=== PATIENT | male | born 1980 | race American Indian/Alaskan Native ===

== ENCOUNTER 2017-01-28 00:58 | Emergency (ER) | payer MEDICAID | END 2017-01-28 01:00 | disposition left against medical advice (07) | LOC: ED 00:58 | DX: F32.9 Major depressive disorder, single episode, unspecified (principal); H66.92 Otitis media, unspecified, left ear; Z53.21 Procedure and treatment not carried out due to patient leaving prior to being seen by health care provider ==

== ENCOUNTER 2017-03-15 21:54 | Emergency (ER) | payer MEDICAID ==
[2017-03-16 00:14] LABS: Anion Gap 16 mmol/L; Blood Urea Nitrogen 8 mg/dL (9-20); Calcium 9.2 mg/dL (8.4-10.2); Carbon Dioxide 25 mmol/L (22-30); Chloride 100.4 mmol/L (98-107); Glucose 93 mg/dL (75-100); Potassium 3.8 mmol/L (3.6-5.0); Sodium 138 mmol/L (137-145)
[2017-03-16 00:15] LABS: Urine Drugs of Abuse Note Disclamer
[2017-03-16 01:18] LABS: Bacteria,Urine 1+ /HPF (Negative); Bilirubin,Urine NEG (Negative); Blood,Urine NEG (Negative); Ketones,Urine 20 mg/dL (Negative); Leukocyte Esterase,Urine TR (Negative); Mucus,Urine FEW /HPF; Nitrite,Urine NEG (Negative); Urobilinogen,Urine < 2.0 mg/dL (<2.0)
[2017-03-16 01:37] LABS: Basophils % (Auto) 0.6 % (0.0-1.8); Eosinophils % (Auto) 0.2 % (0.0-4.3); Hematocrit 44.3 % (35.5-45.6); Hemoglobin 13.9 gm/dl (11.8-15.2); Mean Corpuscular HGB Conc 31 % (32-34); Mean Corpuscular Volume 76 fl (84-94); Platelet Count 307 K/mm3 (140-440); Red Blood Count 5.84 M/mm3 (3.65-5.03); Red Cell Distribution Width 14.1 % (13.2-15.2)
[2017-03-16 01:47] LABS: Mean Corpuscular Hemoglobin 24 pg (28-32)
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
[2017-03-16 07:59] VITALS: BP 110/78
== END 2017-03-16 18:40 ==
LOC: ED 21:54 → EEVIPCON 21:54 → ED 03-16 18:40
DX: R45.851 Suicidal ideations (principal); F20.0 Paranoid schizophrenia; F19.10 Other psychoactive substance abuse, uncomplicated; J45.909 Unspecified asthma, uncomplicated; R56.9 Unspecified convulsions; F17.200 Nicotine dependence, unspecified, uncomplicated
CPT/HCPCS: 36415; 80048; 80307; 81001; 85025; 99285; G0480; 80320

== ENCOUNTER 2017-04-01 04:48 | Emergency (ER) | payer MEDICAID ==
[2017-04-01 04:52] VITALS: BP 130/90
--- NOTE | 2017-04-01 06:04 | XRay Report ---
FINAL REPORT PROCEDURE: XR CHEST ROUTINE 2V TECHNIQUE: PA and lateral chest radiographs were obtained. CPT 39572 HISTORY: Shortness of breath COMPARISON: No prior studies are available for comparison. FINDINGS: Heart: Normal. Mediastinum/Vessels: Normal. Lungs/Pleural space: Normal. Bony thorax: No acute osseous abnormality. Other: IMPRESSION: Normal examination.
[2017-04-01 06:11] LABS: Eosinophils % (Auto) 0.3 % (0.0-4.3)
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
[2017-04-01 06:42] LABS: Anion Gap 19 mmol/L; Blood Urea Nitrogen 13 mg/dL (9-20); Calcium 9.4 mg/dL (8.4-10.2); Carbon Dioxide 24 mmol/L (22-30); Chloride 100.6 mmol/L (98-107); Glucose 99 mg/dL (75-100); Potassium 4.1 mmol/L (3.6-5.0); Sodium 139 mmol/L (137-145)
[2017-04-01 07:06] LABS: Hematocrit 41.6 % (35.5-45.6); Mean Corpuscular Volume 76 fl (84-94); Red Blood Count 5.49 M/mm3 (3.65-5.03); White Blood Count 13.9 K/mm3 (4.5-11.0)
[2017-04-01 07:07] LABS: Basophils % (Auto) 0.8 % (0.0-1.8); Mean Corpuscular HGB Conc 31 % (32-34); Mean Corpuscular Hemoglobin 24 pg (28-32); Platelet Count 375 K/mm3 (140-440)
== END 2017-04-01 06:37 | disposition home or self-care (01) ==
LOC: ED 04:48
DX: J06.9 Acute upper respiratory infection, unspecified (principal); F20.0 Paranoid schizophrenia; J45.909 Unspecified asthma, uncomplicated
CPT/HCPCS: 36415; 71020; 80048; 84484; 85025; 93005; 93010; 99284

== ENCOUNTER 2017-07-17 17:58 | Emergency (ER) | payer SELFPAY ==
[2017-07-17 18:59] LABS: BUN/Creatinine Ratio 9.41; Calcium 9.2 mg/dL (8.4-10.2); Chloride 96.1 mmol/L (98-107); Hematocrit 40.5 % (35.5-45.6); Hemoglobin 12.5 gm/dl (11.8-15.2); Mean Corpuscular HGB Conc 31 % (32-34); Mean Corpuscular Volume 75 fl (84-94); Red Blood Count 5.42 M/mm3 (3.65-5.03); Red Cell Distribution Width 13.6 % (13.2-15.2)
[2017-07-17 19:01] LABS: Mean Corpuscular Hemoglobin 23 pg (28-32); Platelet Count 189 K/mm3 (140-440); White Blood Count 21.5 K/mm3 (4.5-11.0)
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
[2017-07-17] MEDS ORDERED: HALDOL IM ONE (19:38)
[2017-07-17 19:55] LABS: Basophils % (Manual) 0 % (0.0-1.8); Blastocytes % (Manual) 0 %; Eosinophils % (Manual) 0 % (0.0-4.3)
[2017-07-17 19:59] LABS: Microcytosis 1+; Ovalocytes Few; Polychromasia 1+
[2017-07-17 20:00] LABS: Diff Status Complete; Platelet Clumps 1+
[2017-07-17 20:13] VITALS: BP 107/66
== END 2017-07-17 20:12 ==
LOC: ED 17:58
DX: Z76.0 Encounter for issue of repeat prescription (principal); F20.89 Other schizophrenia; J45.909 Unspecified asthma, uncomplicated; F17.200 Nicotine dependence, unspecified, uncomplicated
CPT/HCPCS: 36415; 80048; 85007; 85025; 96372; 99283; G0480; J1630; 80320

== ENCOUNTER 2019-08-24 13:39 | Emergency (ER) | payer SELFPAY ==
--- NOTE | 2019-08-24 14:01 | Event Note ---
ED Screening Note Date of service: 08/24/19 Time: 13:53 ED Screening Note: 38 y/o male comes in for Psych eval This initial assessment/diagnostic orders/clinical plan/treatment(s) is/are subject to change based on patients health status, clinical progression and re- assessment by fellow clinical providers in the ED. Further treatment and workup at subsequent clinical providers discretion. Patient/guardian urged not to elope from the ED as their condition may be serious if not clinically assessed and managed. Initial orders include:
[2019-08-24] MEDS ORDERED: GEODON IM ONE (14:40)
[2019-08-24] MEDS ORDERED: ATIVAN IV ONE (14:40)
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
[2019-08-24] MEDS ORDERED: WATER FOR INJ Sterile (PF) 10 ML ONE (14:59)
[2019-08-24 15:11] LABS: Alanine Aminotransferase 41 units/L (7-56); Albumin 3.9 g/dL (3.9-5); BUN/Creatinine Ratio 16; Blood Urea Nitrogen 14 mg/dL (9-20); Calcium 8.1 mg/dL (8.4-10.2); Hemolysis Index 10
[2019-08-24 16:20] LABS: Hematocrit 35.1 % (35.5-45.6); Hemoglobin 11.2 gm/dl (11.8-15.2); Mean Corpuscular HGB Conc 32 % (32-34); Mean Corpuscular Volume 76 fl (84-94); Platelet Count 296 K/mm3 (140-440); Red Blood Count 4.62 M/mm3 (3.65-5.03); Red Cell Distribution Width 14.3 % (13.2-15.2)
[2019-08-24 17:13] LABS: Anisocytosis 1+; Basophils % (Manual) 0 % (0.0-1.8); Eosinophils % (Manual) 0 % (0.0-4.3); Hypochromasia 1+; Platelet Estimate Consistent w Auto; Poikilocytosis 1+; Total Cells Counted 100
[2019-08-24 20:14] LABS: Bilirubin,Urine NEG (Negative); Blood,Urine NEG (Negative); Color,Urine Yellow (Yellow); Hyaline Casts,Urine 1 /LPF; Protein,Urine <15 mg/dL mg/dL (Negative); Urobilinogen,Urine < 2.0 mg/dL (<2.0); WBC,Urine < 1.0 /HPF (0.0-6.0)
[2019-08-24 20:25] LABS: Amphetamine Screen,Urine PRESUMPTIVE NEGATIVE; Benzodiazepines Screen,Urine PRESUMPTIVE NEGATIVE; Methadone Screen,Urine PRESUMPTIVE NEGATIVE; Opiate Screen,Urine PRESUMPTIVE NEGATIVE
[2019-08-24 21:45] LABS: Cannabinoid Screen,Urine PRESUMPTIVE POSITIVE; Cocaine Screen,Urine PRESUMPTIVE POSITIVE
[2019-08-25 08:55] VITALS: BP 121/72
--- NOTE | 2019-08-25 09:38 | Consultation ---
History of Present Illness - Reason for Consult Consult date: 08/25/19 Reason for consult: Mental Health Evaluation Requesting physician: EMIL HERRERA III - Chief Complaint Chief complaint: "I need to stop with my drug use" - History of Present Psychiatric Illness 38 y.o. AA male who presented to the ER for acute psychosis. Today the patient was calm and cooperative during the assessment. He stated that he was [facility]. He stated that he "binged" on drugs the past few days prior to coming to the ER. He stated, "I was with this female who can get drugs." He stated that he made a "bad choice." He is adamant about not wanting to use drugs again. He stated that he have used "drugs on and off" throughout his adult life. He stated that he has a hx of a mood/psychotic do. He stated that he can be "something else" when he's high on drugs. He denies SI/HI's and AVH's. He denies that someone or something is after him. He denies erratic sleep and a poor appetite. He denies alcohol consumption (etoh). Medications and Allergies Allergies Allergy/AdvReac Type Severity Reaction Status Date / Time No Known Allergies Allergy Verified 05/01/14 03:35 Home Medications Medication Instructions Recorded Confirmed Last Taken Type QUEtiapine [SEROquel] 400 mg PO QHS 05/29/16 03/16/17 05/22/16 History ALBUTEROL Inhaler (OR & NICU) 2 puff IH QID PRN #1 inhalation 06/12/16 03/16/17 Unknown Rx [ProAir HFA Inhaler] FLUoxetine HCL [PROzac] 40 mg PO QDAY 03/16/17 03/16/17 Unknown History Haloperidol Lactate [Haldol] 5 mg IM QMONTH 03/16/17 03/16/17 Unknown History Azithromycin [Zithromax] 250 mg PO DAILY #6 tablet 04/01/17 Unknown Rx guaiFENesin DM [Robitussin Dm] 5 ml PO QID #150 udc 04/01/17 Unknown Rx ARIPiprazole [Abilify] 15 mg PO DAILY #30 tab 07/17/17 Unknown Rx Past psychiatric history - Past Medical History Past Medical History: No medical history Past Surgical History: No surgical history - past Psychiatric treatment and history psychiatric treatment history: Hx of mood do and substance abuse. Denies a fam psy hx. - Social History Social history: lives with family Mental Status Exam - Vital signs Last Vital Signs Temp 98.2 F 08/25/19 07:50 Pulse 97 H 08/25/19 07:50 Resp 18 08/25/19 07:50 BP 121/72 08/25/19 07:50 Pulse Ox 96 08/25/19 07:50 - Exam Narrative exam: MSE: Appearance: calm, cooperative Behavior: regular eye contact Speech: regular rate and low tone Mood: "better" Affect: congruent to mood Thought Process: circumstantial Thought Content: denies SL/HI's and AVH's Motor Activity: lying in bed Cognition: A/O x 3 Insight: fair Judgment: fair Results Result Diagrams: 08/24/19 14:30 08/24/19 14:30 Abnormal lab results 08/24/19 08/24/19 08/24/19 Range/Units 14:30 14:30 14:30 WBC 16.0 H (4.5-11.0) K/mm3 Hgb 11.2 L (11.8-15.2) gm/dl Hct 35.1 L (35.5-45.6) % MCV 76 L (84-94) fl MCH 24 L (28-32) pg Seg Neuts % (Manual) 81.0 H (40.0-70.0) % Lymphocytes % (Manual) 10.0 L (13.4-35.0) % Monocytes % (Manual) 8.0 H (0.0-7.3) % Seg Neutrophils # Man 13.0 H (1.8-7.7) K/mm3 Monocytes # (Manual) 1.3 H (0.0-0.8) K/mm3 Carbon Dioxide 21 L (22-30) mmol/L Calcium 8.1 L (8.4-10.2) mg/dL AST 172 H (5-40) units/L Salicylates 1.6 L (2.8-20.0) mg/dL Acetaminophen (10.0-30.0) ug/mL 08/24/19 Range/Units 14:30 WBC (4.5-11.0) K/mm3 Hgb (11.8-15.2) gm/dl Hct (35.5-45.6) % MCV (84-94) fl MCH (28-32) pg Seg Neuts % (Manual) (40.0-70.0) % Lymphocytes % (Manual) (13.4-35.0) % Monocytes % (Manual) (0.0-7.3) % Seg Neutrophils # Man (1.8-7.7) K/mm3 Monocytes # (Manual) (0.0-0.8) K/mm3 Carbon Dioxide (22-30) mmol/L Calcium (8.4-10.2) mg/dL AST (5-40) units/L Salicylates (2.8-20.0) mg/dL Acetaminophen < 5.0 L (10.0-30.0) ug/mL All other labs normal. Assessment and Plan Assessment and plan: Impression: Substance Induced Psychosis. Substance Use Do (cocaien0. Cannabis Use Do. No overt psychosis with the patient. Today the patient was calm and cooperative during the assessment. Recommendations/Plan: Rescind 1013. Discussed the importance to abstain from recreational drug, he verbalized understanding. dispo: The patient can follow up with [facility] for outpatient psy/rehab services. Will staff with Dr Tisha Macedo.
== END 2019-08-25 11:06 | disposition home or self-care (01) ==
LOC: ED 13:39
DX: F14.10 Cocaine abuse, uncomplicated (principal); F12.10 Cannabis abuse, uncomplicated; R45.851 Suicidal ideations; F20.9 Schizophrenia, unspecified; J45.909 Unspecified asthma, uncomplicated; Z91.14 Patient's other noncompliance with medication regimen; Z76.0 Encounter for issue of repeat prescription; Z79.899 Other long term (current) drug therapy
CPT/HCPCS: 36415; 80053; 80307; 81001; 85007; 85025; 96372; 96374; 99284; J2060; J3486; 80320; G0480

== ENCOUNTER 2019-08-26 20:36 | Emergency (ER) | payer SELFPAY ==
--- NOTE | 2019-08-26 21:19 | Event Note ---
ED Screening Note Date of service: 08/26/19 Time: 21:13 ED Screening Note: This is a 38 y.o. M. that presents to the ER with headache, sore throat, and medication refills. Reports sore throat and headache for 2 days. Patient states symptoms started after having oral intercourse. This initial assessment/diagnostic orders/clinical plan/treatment(s) is/are subject to change based on patients health status, clinical progression and re- assessment by fellow clinical providers in the ED. Further treatment and workup at subsequent clinical providers discretion. Patient/guardian urged not to elope from the ED as their condition may be serious if not clinically assessed and managed. Initial orders include:
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
[2019-08-26 22:51] VITALS: BP 129/69
--- NOTE | 2019-08-26 23:06 | XRay Report ---
CHEST 2 VIEWS INDICATION / CLINICAL INFORMATION: chest pain. COMPARISON: 04/01/2017 FINDINGS: SUPPORT DEVICES: None. HEART / MEDIASTINUM: No significant abnormality. LUNGS / PLEURA: No significant pulmonary or pleural abnormality. No pneumothorax. ADDITIONAL FINDINGS: No significant additional findings. IMPRESSION: 1. No acute findings. Signer Name: Kaiden Ornelas MD Signed: 08/26/2019 11:02 PM Workstation Name: [id number]
== END 2019-08-26 23:30 | disposition home or self-care (01) ==
LOC: ED 20:36
DX: F20.9 Schizophrenia, unspecified (principal); J20.9 Acute bronchitis, unspecified; J45.909 Unspecified asthma, uncomplicated; F17.200 Nicotine dependence, unspecified, uncomplicated; Z76.0 Encounter for issue of repeat prescription; Z79.899 Other long term (current) drug therapy
CPT/HCPCS: 71046

== ENCOUNTER 2019-10-29 09:42 | Emergency (ER) | payer SELFPAY ==
[2019-10-29 09:53] VITALS: BP 134/91
== END 2019-10-29 12:54 | disposition left against medical advice (07) ==
LOC: ED 09:42
DX: T43.4X1A Poisoning by butyrophenone and thiothixene neuroleptics, accidental (unintentional), initial encounter (principal); Z53.21 Procedure and treatment not carried out due to patient leaving prior to being seen by health care provider; Y92.89 Other specified places as the place of occurrence of the external cause

== ENCOUNTER 2019-11-09 10:15 | Emergency (ER) | payer SELFPAY | END 2019-11-09 10:50 | disposition left against medical advice (07) | LOC: ED 10:15 | DX: F20.9 Schizophrenia, unspecified (principal); Z53.21 Procedure and treatment not carried out due to patient leaving prior to being seen by health care provider ==

== ENCOUNTER 2019-11-22 02:11 | Emergency (ER) | payer SELFPAY ==
[2019-11-22 03:13] LABS: Basophils # (Auto) 0.1 K/mm3 (0.0-0.1); Basophils % (Auto) 0.9 % (0.0-1.8); Eosinophils % (Auto) 0.2 % (0.0-4.3); Hematocrit 42.4 % (35.5-45.6); Hemoglobin 13.2 gm/dl (11.8-15.2); Lymphocytes % (Auto) 20.3 % (13.4-35.0); Mean Corpuscular HGB Conc 31 % (32-34); Mean Corpuscular Volume 76 fl (84-94); Monocytes # (Auto) 1.1 K/mm3 (0.0-0.8); Monocytes % (Auto) 7.2 % (0.0-7.3); Platelet Count 326 K/mm3 (140-440); Red Blood Count 5.56 M/mm3 (3.65-5.03); Red Cell Distribution Width 14.3 % (13.2-15.2)
[2019-11-22 03:39] LABS: BUN/Creatinine Ratio 12; Blood Urea Nitrogen 11 mg/dL (9-20); Calcium 9.2 mg/dL (8.4-10.2); Hemolysis Index 5
[2019-11-22 04:15] LABS: Bilirubin,Urine NEG (Negative); Blood,Urine NEG (Negative); Color,Urine Yellow (Yellow); Mucus,Urine FEW /HPF; Protein,Urine <15 mg/dL mg/dL (Negative); Urobilinogen,Urine < 2.0 mg/dL (<2.0)
[2019-11-22 04:23] LABS: Amphetamine Screen,Urine PRESUMPTIVE NEGATIVE; Benzodiazepines Screen,Urine PRESUMPTIVE NEGATIVE; Methadone Screen,Urine PRESUMPTIVE NEGATIVE; Opiate Screen,Urine PRESUMPTIVE NEGATIVE
[2019-11-22 04:58] LABS: Cannabinoid Screen,Urine PRESUMPTIVE POSITIVE; Cocaine Screen,Urine PRESUMPTIVE POSITIVE
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
[2019-11-22 17:18] LABS: Hematocrit 40.9 % (35.5-45.6); Hemoglobin 13.3 gm/dl (11.8-15.2); Mean Corpuscular HGB Conc 32 % (32-34); Mean Corpuscular Volume 76 fl (84-94); Platelet Count 344 K/mm3 (140-440); Red Cell Distribution Width 14.4 % (13.2-15.2)
--- NOTE | 2019-11-23 15:29 | Consultation ---
History of Present Illness - Reason for Consult Consult date: 11/23/19 Reason for consult: psychiatric assessment - Chief Complaint Chief complaint: Medical records reviewed and patient's progress was discussed with unit staff. Nursing staff reports that patient pt resting quietly on recliner, resp even and non labored, no acute distress noted, no behaviors or s/s of self harm noted, ambulates as needed to restroom without difficulty, able to make needs known. mr nicole is a 39 year old male, he is aaox3, he reports that he came to the hospital because of SI with overdose plan for 3 days, he stated he been off his medication for 4 days, because he didn't have any. he all so states " I am hearing voices telling me I am nobody, and i wont make it. the patient is still suicidal with a plan. . The patient is unstable at this time. PAST PSYCHIATRIC HISTORY: Diagnoses:schizophrenia, depression Suicide attempts or Self-harm behavior: no Prior psychiatric hospitalizations: yes Substance Abuse history: cocaine , marijuana Previous psychiatric medications tried: yes Outpatient treatment: yes PAST MEDICAL HISTORY: none Family Psychiatric History bipolar - dad bipolar- aunt SOCIAL HISTORY Marital Status: single Living Arrangements: family Employment Status: unemployed Access to guns/weapons:no Education: 10th History of Abuse:no Legal History: yes ROS: Constitutional: Negative for weight loss ENT: Negative for stridor Respiratory: Negative for cough or hemoptysis All other systems reviewed and are negative MENTAL STATUS General Appearance and Behavior: age appropriate, good eye contact, cooperative with questioning and polite Cooperation: Cooperative Psychomotor Behavior: within normal limits Mood: OK Affect and affective range: Congruent with stated mood Thought Process: Fluent/Logical and Goal-directed Thought Content: Within reality Speech: Normal volume and Regular rate and rhythm Intellectual Functioning Average Suicidal Ideation: yes Homicidal Ideation: Denies HI Impulse Control: intact Insight and Judgment: diminish Memory: Normal Attention: Normal Orientation: alert and oriented RECOMMENDATIONS MEDICATIONS: restart abilifty 5mg daily restart prozac 20mg daily restart geodon 40mg daily Risks, benefits and alternatives of medications discussed with the patient, questions answered and consent obtained from patient. PSYCHOTHERAPY: Supportive psychotherapy provided MEDICAL: Per primary team DELIRIUM PRECAUTIONS: Please re-orient patient frequently, keep lights on during the day, and minimize benzodiazepines and opiates as these medications could worsen patient's confusion. RN CARDIAC CATH: DISPOSITION: The patient is unable and need to be placed. LEGAL STATUS: FOLLOW-UP: Will follow Medications and Allergies Allergies Allergy/AdvReac Type Severity Reaction Status Date / Time No Known Allergies Allergy Verified 10/29/19 09:45 Home Medications Medication Instructions Recorded Confirmed Last Taken Type FLUoxetine HCL [PROzac] 20 mg PO QDAY 03/16/17 11/23/19 1 Week Ago History ~11/16/19 ARIPiprazole [Abilify TAB] 5 mg PO DAILY #30 tab 08/26/19 11/23/19 1 Week Ago Rx ~11/16/19 ARIPiprazole [Abilify] 5 mg PO DAILY 08/26/19 11/23/19 1 Week Ago History ~11/16/19 Ciprofloxacin HCl [Ciprofloxacin 500 mg PO Q12HR #14 tab 08/26/19 Unknown Rx TAB] FLUoxetine [PROzac] 20 mg PO QDAY #30 capsule 08/26/19 11/23/19 1 Week Ago Rx ~11/16/19 Ibuprofen [Motrin 800 MG tab] 800 mg PO Q8HR PRN #20 tablet 08/26/19 Unknown Rx Ziprasidone [Geodon] 40 mg PO DAILY #30 cap 08/26/19 11/23/19 1 Week Ago Rx ~11/16/19 traMADoL [Ultram] 50 mg PO Q6HR PRN #10 tablet 08/26/19 Unknown Rx Mental Status Exam - Vital signs Last Vital Signs Temp 98.4 F 11/23/19 13:00 Pulse 82 11/23/19 13:00 Resp 18 11/23/19 13:00 BP 123/82 11/23/19 13:00 Pulse Ox 99 11/23/19 13:00 Results Result Diagrams: 11/22/19 17:07 11/22/19 02:46 Abnormal lab results 11/22/19 Range/Units 17:07 RBC 5.40 H (3.65-5.03) M/mm3 MCV 76 L (84-94) fl MCH 25 L (28-32) pg All other labs normal.
[2019-11-23] MEDS ORDERED: traZODone 50 MG TAB PO ONE ×3 (19:52→23:09)
[2019-11-24] MEDS: FLUoxetine 20 MG CAP PO SCH (11:00)
[2019-11-24] MEDS: ZIPRASIDONE 40 MG CAP PO SCH (11:07)
[2019-11-24] MEDS: ARIPiprazole 5 MG TAB PO SCH (11:07)
--- NOTE | 2019-11-24 12:27 | Emergency Department Report ---
Blank Doc - Documentation Documentation: Patient comfortable. Reports he has not had a seizure in over a year. Reports not currently taking any seizure medications
--- NOTE | 2019-11-24 14:45 | Progress Note ---
Subjective - Reason for Consult Consult date: 11/24/19 Reason for consult: suicidal ideation - Chief Complaint Chief complaint: During my interview of the patient, he was lying down. Asleep. Easily arouses. Dressed appropriately. Fair eye contact. He's a/o x 3. The patient says he's been "suicidal since Wednesday." He says he's "depressed and going through it." The patient says if discharge he "will take the whole bottle of seroquel." He says "I get like this because of my schizophrenia." He says, meds "normally keep me stable but now I don't know." He denies hallucinations of any kind. The patient says he sleeps "okay" and his appetite is good. ROS: Constitutional: Negative for weight loss ENT: Negative for stridor Respiratory: Negative for cough or hemoptysis All other systems reviewed and are negative Mental Status Exam Appearance: Dressed appropriately, Good hygiene Behavior: Cooperative, and calm Mood: Depressed, Suicidal Affect: Congruent with stated mood Thought Process: goal-direct Speech: Normal Thought Content: Harmfulness yes, "I will take whole bottle of Seroquel" Hallucinations: denies Delusions: denies Consciousness: Alert Cognition/Memory: Fair Insight/Judgment: Limited. Assessment: Major Depressive Disorder, Severe, w/o Psychotic Features RECOMMENDATIONS MEDICATIONS: Continue current medication regimen Risks, benefits and alternatives of medications discussed with the patient, questions answered and consent obtained from patient. PSYCHOTHERAPY: Supportive psychotherapy provided MEDICAL: Per primary team DELIRIUM PRECAUTIONS: Please re-orient patient frequently, keep lights on during the day, and minimize benzodiazepines and opiates as these medications could worsen patient's confusion. COMMUNICATION COORDINATOR: Defer to primary team DISPOSITION: The patient meets criteria for acute inpatient treatment. Transfer to appropriate psych facility once medically stable. FOLLOW-UP: Will follow until the patient is transferred Mental Status Exam - Vital signs Last Vital Signs Temp 98.1 F 11/24/19 08:04 Pulse 68 11/24/19 08:04 Resp 18 11/24/19 08:04 BP 126/83 11/24/19 08:04 Pulse Ox 99 11/24/19 08:04
[2019-11-25] MEDS: ARIPiprazole 5 MG TAB PO SCH (10:18)
[2019-11-25] MEDS: ZIPRASIDONE 40 MG CAP PO SCH (10:18)
[2019-11-25] MEDS: FLUoxetine 20 MG CAP PO SCH (10:18)
--- NOTE | 2019-11-25 11:08 | Progress Note ---
Subjective - Reason for Consult Consult date: 11/25/19 Reason for consult: Suicidal ideation - Chief Complaint Chief complaint: During my interview of the patient, he was lying down. Asleep. Easily arouses. Dressed appropriately. Fair eye contact. He's a/o x 3. The patient is calm and cooperative. The patient says he's " still depressed." He says he feels "very suicidal" but says he "doesn't have a plan anymore." He says his night "went well." He denies hallucinations of any kind. He says his appetite has been Good" ROS: Constitutional: Negative for weight loss ENT: Negative for stridor Respiratory: Negative for cough or hemoptysis All other systems reviewed and are negative Mental Status Exam Appearance: Dressed appropriately, Good hygiene Behavior: Cooperative, and calm Mood: Depressed, Very suicidal Affect: Congruent with stated mood Thought Process: goal-direct Speech: Normal Thought Content: Harmfulness: Suicidal Hallucinations: denies Delusions: denies Consciousness: Alert Cognition/Memory: Fair Insight/Judgment: Limited. Assessment: Major Depressive Disorder, Severe, w/o Psychotic Features RECOMMENDATIONS Continue 1013 MEDICATIONS: Continue current medication regimen Risks, benefits and alternatives of medications discussed with the patient, questions answered and consent obtained from patient. PSYCHOTHERAPY: Supportive psychotherapy provided MEDICAL: Per primary team DELIRIUM PRECAUTIONS: Please re-orient patient frequently, keep lights on during the day, and minimize benzodiazepines and opiates as these medications could worsen patient's confusion. COTTON GINNER HELPER: Defer to primary team DISPOSITION: The patient meets criteria for acute inpatient treatment. Transfer to appropriate psych facility once medically stable. FOLLOW-UP: Will follow until the patient is transferred Mental Status Exam - Vital signs Last Vital Signs Temp 98.3 F 11/25/19 07:45 Pulse 82 11/25/19 07:45 Resp 18 11/25/19 07:45 BP 109/76 11/25/19 07:45 Pulse Ox 97 11/25/19 07:45
[2019-11-25 13:58] VITALS: BP 124/78
== END 2019-11-25 16:21 ==
LOC: ED 02:11 → EEVIPCON 02:11 → ED 11-25 16:21
DX: F32.9 Major depressive disorder, single episode, unspecified (principal); R45.851 Suicidal ideations; R44.0 Auditory hallucinations
CPT/HCPCS: 36415; 80048; 80307; 80320; 81001; 85025; 85027; G0480

== ENCOUNTER 2019-12-12 21:15 | Emergency (ER) | payer SELFPAY ==
[2019-12-13 00:46] LABS: Basophils # (Auto) 0.1 K/mm3 (0.0-0.1); Eosinophils % (Auto) 0.2 % (0.0-4.3); Hematocrit 40.5 % (35.5-45.6); Hemoglobin 12.8 gm/dl (11.8-15.2); Lymphocytes # (Auto) 2.5 K/mm3 (1.2-5.4); Lymphocytes % (Auto) 17.8 % (13.4-35.0); Mean Corpuscular HGB Conc 32 % (32-34); Mean Corpuscular Volume 77 fl (84-94); Monocytes # (Auto) 1.1 K/mm3 (0.0-0.8); Monocytes % (Auto) 7.7 % (0.0-7.3); Platelet Count 396 K/mm3 (140-440); Red Blood Count 5.27 M/mm3 (3.65-5.03); Red Cell Distribution Width 14.6 % (13.2-15.2)
[2019-12-13 01:04] LABS: BUN/Creatinine Ratio 14; Blood Urea Nitrogen 11 mg/dL (9-20); Calcium 9.6 mg/dL (8.4-10.2); Hemolysis Index 6
[2019-12-13] MEDS ORDERED: HALOPERIDOL LACTATE 5 MG/1 ML INJ IM PRN (03:25)
[2019-12-13] MEDS ORDERED: LORazepam 2 MG/ML VIAL IM PRN (03:25)
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
[2019-12-13] MEDS ORDERED: SODIUM CHLORIDE 0.9% 1000 ML 2,000 ML IV ONE (04:51)
[2019-12-13] MEDS ORDERED: SODIUM CHLORIDE 0.9% 1000 ML 1,000 ML IV ONE ×2 (04:51)
[2019-12-13 06:37] LABS: Bilirubin,Urine NEG (Negative); Blood,Urine NEG (Negative); Color,Urine Yellow (Yellow); Mucus,Urine FEW /HPF; Protein,Urine <15 mg/dL mg/dL (Negative); Urobilinogen,Urine < 2.0 mg/dL (<2.0)
[2019-12-13 06:45] LABS: Benzodiazepines Screen,Urine PRESUMPTIVE NEGATIVE; Methadone Screen,Urine PRESUMPTIVE NEGATIVE; Opiate Screen,Urine PRESUMPTIVE NEGATIVE
[2019-12-13 07:06] LABS: Amphetamine Screen,Urine PRESUMPTIVE POSITIVE; Cannabinoid Screen,Urine PRESUMPTIVE POSITIVE; Cocaine Screen,Urine PRESUMPTIVE POSITIVE
[2019-12-14 04:40] LABS: Hematocrit 37.1 % (35.5-45.6); Hemoglobin 11.8 gm/dl (11.8-15.2); Mean Corpuscular HGB Conc 32 % (32-34); Mean Corpuscular Volume 77 fl (84-94); Platelet Count 352 K/mm3 (140-440); Red Blood Count 4.84 M/mm3 (3.65-5.03); Red Cell Distribution Width 14.7 % (13.2-15.2)
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
[2019-12-14 16:57] VITALS: BP 176/88
== END 2019-12-14 13:40 | disposition home or self-care (01) ==
LOC: ED 21:15
DX: F20.0 Paranoid schizophrenia (principal); R74.8 Abnormal levels of other serum enzymes; F17.200 Nicotine dependence, unspecified, uncomplicated; Z79.899 Other long term (current) drug therapy
CPT/HCPCS: 36415; 80048; 80307; 81001; 82550; 83735; 85025; 85027; 96372; 99284; J2060; J7030; 80320; G0480

== ENCOUNTER 2020-01-26 17:55 | Emergency (ER) | payer SELFPAY ==
[2020-01-26 18:40] LABS: Basophils # (Auto) 0.1 K/mm3 (0.0-0.1); Basophils % (Auto) 0.8 % (0.0-1.8); Eosinophils % (Auto) 0.5 % (0.0-4.3); Hematocrit 39.1 % (35.5-45.6); Hemoglobin 12.2 gm/dl (11.8-15.2); Lymphocytes # (Auto) 2.5 K/mm3 (1.2-5.4); Lymphocytes % (Auto) 24.8 % (13.4-35.0); Mean Corpuscular HGB Conc 31 % (32-34); Mean Corpuscular Volume 77 fl (84-94); Monocytes # (Auto) 0.7 K/mm3 (0.0-0.8); Monocytes % (Auto) 6.7 % (0.0-7.3); Platelet Count 352 K/mm3 (140-440); Red Blood Count 5.08 M/mm3 (3.65-5.03); Red Cell Distribution Width 14.2 % (13.2-15.2)
[2020-01-26 19:00] LABS: BUN/Creatinine Ratio 12; Blood Urea Nitrogen 11 mg/dL (9-20); Calcium 9.2 mg/dL (8.4-10.2); Hemolysis Index 6
--- NOTE | 2020-01-26 20:20 | Event Note ---
ED Screening Note ED Screening Note: The patient was seen in triage for racing thoughts and anxiety. Requesting to get his monthly haldol shot here. Seen here 1 month ago for suicidal ideation. Labs/imaging ordered to evaluate for a cause of this complaint. Vital signs reviewed, patient awake and alert in NAD. This initial assessment/diagnostic orders/clinical plan/treatment(s) is/are subject to change based on patients health status, clinical progression and re- assessment by fellow clinical providers in the ED. Further treatment and workup at subsequent clinical providers discretion. Patient/guardian urged not to elope from the ED as their condition may be serious if not clinically assessed and managed. Initial orders include: MD to evaluate for HALDOL. No bryan or psychosis at current.
[2020-01-26 20:22] VITALS: BP 116/64
--- NOTE | 2020-01-26 23:42 | Emergency Department Report ---
Blank Doc - Documentation Documentation: Patient eloped before I was able to enter the room thus a physical exam or his tory cannot be done.
== END 2020-01-26 23:39 | disposition left against medical advice (07) ==
LOC: ED 17:55
DX: F41.9 Anxiety disorder, unspecified (principal)
CPT/HCPCS: 36415; 80048; 85025

== ENCOUNTER 2020-03-13 20:36 | Emergency (ER) | payer SELFPAY ==
[2020-03-13 20:59] VITALS: BP 114/83
== END 2020-03-13 21:30 | disposition left against medical advice (07) ==
LOC: ED 20:36 → EEVIPCON 20:36 → ED 21:30
DX: R45.851 Suicidal ideations (principal); Z53.21 Procedure and treatment not carried out due to patient leaving prior to being seen by health care provider

== ENCOUNTER 2020-04-14 09:35 | Emergency (ER) | payer SELFPAY ==
[2020-04-14 10:19] LABS: Basophils # (Auto) 0.1 K/mm3 (0.0-0.1); Basophils % (Auto) 0.8 % (0.0-1.8); Eosinophils # (Auto) 0.1 K/mm3 (0.0-0.4); Eosinophils % (Auto) 0.6 % (0.0-4.3); Hematocrit 43.7 % (35.5-45.6); Hemoglobin 13.6 gm/dl (11.8-15.2); Lymphocytes # (Auto) 2.4 K/mm3 (1.2-5.4); Lymphocytes % (Auto) 23.6 % (13.4-35.0); Mean Corpuscular HGB Conc 31 % (32-34); Mean Corpuscular Volume 75 fl (84-94); Monocytes # (Auto) 0.7 K/mm3 (0.0-0.8); Monocytes % (Auto) 6.9 % (0.0-7.3); Platelet Count 367 K/mm3 (140-440); Red Cell Distribution Width 13.7 % (13.2-15.2)
[2020-04-14 10:32] LABS: BUN/Creatinine Ratio 13; Blood Urea Nitrogen 13 mg/dL (9-20); Calcium 8.8 mg/dL (8.4-10.2); Hemolysis Index 9
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
[2020-04-14 11:03] LABS: Bilirubin,Urine NEG (Negative); Blood,Urine NEG (Negative); Color,Urine Colorless (Yellow); Protein,Urine <15 mg/dL mg/dL (Negative); Urobilinogen,Urine < 2.0 mg/dL (<2.0); WBC,Urine < 1.0 /HPF (0.0-6.0)
[2020-04-14 11:08] LABS: Amphetamine Screen,Urine PRESUMPTIVE NEGATIVE; Benzodiazepines Screen,Urine PRESUMPTIVE NEGATIVE; Cannabinoid Screen,Urine PRESUMPTIVE NEGATIVE; Cocaine Screen,Urine PRESUMPTIVE NEGATIVE; Methadone Screen,Urine PRESUMPTIVE NEGATIVE; Opiate Screen,Urine PRESUMPTIVE NEGATIVE
[2020-04-14 11:20] LABS: RBC,Urine < 1.0 /HPF (0.0-6.0)
[2020-04-14] MEDS ORDERED: HALOPERIDOL 5 MG TAB PO ONE (12:15)
[2020-04-14] MEDS: diphenhydrAMINE 25 MG CAP PO SCH ×2 (12:54→23:08)
[2020-04-14] MEDS ORDERED: ALUM-MAG HYDROXIDE-SIMETHICONE 200-200-20MG/5ML ORAL LIQD 30 ML PO PRN (13:55)
[2020-04-14] MEDS ORDERED: MAGNESIUM HYDROXIDE (MOM) ORAL LIQD UDC PO PRN (13:55)
[2020-04-14] MEDS ORDERED: ACETAMINOPHEN 325 MG TAB PO PRN (13:55)
[2020-04-14] MEDS ORDERED: ZIPRASIDONE MESYLATE 20 MG VIAL IM ONE ×2 (14:10→14:16)
[2020-04-14] MEDS ORDERED: LORazepam 2 MG/ML VIAL ONE (14:12)
[2020-04-14] MEDS ORDERED: LORazepam 2 MG/ML VIAL IM ONE (14:16)
[2020-04-14] MEDS ORDERED: traZODone 100 MG TAB PO SCH (22:00)
[2020-04-15] MEDS ORDERED: guaiFENesin DM 200/20 MG ORAL LIQD 10 ML PO ONE (03:31)
[2020-04-15] MEDS ORDERED: guaiFENesin DM 200/20 MG ORAL LIQD 10 ML ONE (03:32)
[2020-04-15 07:46] VITALS: BP 112/70
[2020-04-15] MEDS: risperiDONE 0.25 MG TAB PO SCH ×2 (08:02→10:13)
[2020-04-15] MEDS ORDERED: FLUoxetine 20 MG CAP PO SCH (10:00)
[2020-04-15] MEDS: diphenhydrAMINE 25 MG CAP PO SCH (10:13)
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
== END 2020-04-15 12:10 | disposition home or self-care (01) ==
LOC: ED 09:35
DX: F20.89 Other schizophrenia (principal); J45.909 Unspecified asthma, uncomplicated; F17.200 Nicotine dependence, unspecified, uncomplicated; F12.10 Cannabis abuse, uncomplicated
CPT/HCPCS: 36415; 80048; 80307; 81001; 85025; 93005; 96372; 99284; J2060; J3486; 80320; G0480

== ENCOUNTER 2020-05-13 07:47 | Emergency (ER) | payer SELFPAY ==
[2020-05-13 08:30] LABS: Bilirubin,Urine NEG (Negative); Blood,Urine NEG (Negative); Color,Urine Yellow (Yellow); Mucus,Urine FEW /HPF; Protein,Urine <15 mg/dL mg/dL (Negative); Urobilinogen,Urine < 2.0 mg/dL (<2.0)
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
[2020-05-13 09:04] LABS: Basophils # (Auto) 0.1 K/mm3 (0.0-0.1); Basophils % (Auto) 1.3 % (0.0-1.8); Eosinophils % (Auto) 0.3 % (0.0-4.3); Hematocrit 43.5 % (35.5-45.6); Hemoglobin 13.5 gm/dl (11.8-15.2); Lymphocytes # (Auto) 2.3 K/mm3 (1.2-5.4); Lymphocytes % (Auto) 23.3 % (13.4-35.0); Mean Corpuscular HGB Conc 31 % (32-34); Mean Corpuscular Volume 78 fl (84-94); Monocytes # (Auto) 0.9 K/mm3 (0.0-0.8); Monocytes % (Auto) 9.5 % (0.0-7.3); Platelet Count 316 K/mm3 (140-440); Red Blood Count 5.59 M/mm3 (3.65-5.03); Red Cell Distribution Width 14.7 % (13.2-15.2)
[2020-05-13 09:18] LABS: Amphetamine Screen,Urine PRESUMPTIVE NEGATIVE; Cocaine Screen,Urine PRESUMPTIVE POSITIVE
[2020-05-13 09:19] LABS: Benzodiazepines Screen,Urine PRESUMPTIVE NEGATIVE; Cannabinoid Screen,Urine PRESUMPTIVE POSITIVE; Methadone Screen,Urine PRESUMPTIVE NEGATIVE; Opiate Screen,Urine PRESUMPTIVE NEGATIVE
[2020-05-13 09:46] LABS: BUN/Creatinine Ratio 18; Blood Urea Nitrogen 14 mg/dL (9-20)
[2020-05-13 09:47] LABS: Calcium 9.9 mg/dL (8.4-10.2); Hemolysis Index 9
[2020-05-14 08:29] VITALS: BP 132/90
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
[2020-05-14] MEDS ORDERED: PROMETHAZINE 25 MG TAB PO STA (11:09)
[2020-05-14] MEDS ORDERED: HALOPERIDOL DECANOATE 100 MG/1 ML INJ IM ONE (12:00)
== END 2020-05-14 11:18 ==
LOC: EEVIPCON 07:47 → ED 07:47
DX: F20.89 Other schizophrenia (principal); F15.10 Other stimulant abuse, uncomplicated
CPT/HCPCS: 36415; 80048; 80307; 80320; 81001; 85025; 93005; G0480; J1631

== ENCOUNTER 2020-09-28 02:03 | Emergency (ER) | payer MEDICAID ==
--- NOTE | 2020-09-28 04:09 | XRay Report ---
CHEST 2 VIEWS INDICATION / CLINICAL INFORMATION: cough. COMPARISON: 05/07/2020 FINDINGS: SUPPORT DEVICES: None. HEART / MEDIASTINUM: No significant abnormality. LUNGS / PLEURA: No significant pulmonary or pleural abnormality. No pneumothorax. ADDITIONAL FINDINGS: No significant additional findings. IMPRESSION: 1. No acute findings. Signer Name: Paco Tidwell MD Signed: 09/28/2020 4:04 AM Workstation Name: [id number]
[2020-09-28] MEDS ORDERED: IPRATROPIUM/ALBUTEROL SULFATE 3 ML AMPUL.NEB IH ONE (07:41)
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
[2020-09-28 10:17] VITALS: BP 130/80
== END 2020-09-28 10:00 | disposition home or self-care (01) ==
LOC: ED 02:03
DX: J06.9 Acute upper respiratory infection, unspecified (principal); R56.9 Unspecified convulsions; F20.0 Paranoid schizophrenia; F17.200 Nicotine dependence, unspecified, uncomplicated; Z98.890 Other specified postprocedural states; Z79.899 Other long term (current) drug therapy
CPT/HCPCS: 71046; 94640; 94644

== ENCOUNTER 2020-09-30 09:09 | Emergency (ER) | payer MEDICAID ==
[2020-09-30 11:16] LABS: Basophils # (Auto) 0.2 K/mm3 (0.0-0.1); Basophils % (Auto) 1.1 % (0.0-1.8); Eosinophils % (Auto) 0.1 % (0.0-4.3); Hematocrit 41.4 % (35.5-45.6); Hemoglobin 13.1 gm/dl (11.8-15.2); Lymphocytes # (Auto) 2.1 K/mm3 (1.2-5.4); Lymphocytes % (Auto) 13.2 % (13.4-35.0); Mean Corpuscular HGB Conc 32 % (32-34); Mean Corpuscular Volume 75 fl (84-94); Monocytes # (Auto) 0.9 K/mm3 (0.0-0.8); Monocytes % (Auto) 5.5 % (0.0-7.3); Platelet Count 325 K/mm3 (140-440); Red Blood Count 5.51 M/mm3 (3.65-5.03); Red Cell Distribution Width 14.4 % (13.2-15.2)
[2020-09-30 11:40] LABS: BUN/Creatinine Ratio 16; Blood Urea Nitrogen 11 mg/dL (9-20); Calcium 9.6 mg/dL (8.4-10.2); Hemolysis Index 14
[2020-09-30 15:18] LABS: Bilirubin,Urine NEG (Negative); Blood,Urine NEG (Negative); Color,Urine Yellow (Yellow); Mucus,Urine FEW /HPF; Protein,Urine <15 mg/dL mg/dL (Negative)
[2020-09-30 15:25] LABS: Amphetamine Screen,Urine Negative; Benzodiazepines Screen,Urine Negative; Methadone Screen,Urine Negative; Opiate Screen,Urine Negative
[2020-09-30 15:42] LABS: Cannabinoid Screen,Urine Positive; Cocaine Screen,Urine Positive
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
[2020-09-30] MEDS ORDERED: predniSONE 20 MG TAB PO ONE (16:43)
[2020-09-30] MEDS ORDERED: CETIRIZINE 10 MG TAB PO ONE (16:43)
[2020-09-30] MEDS ORDERED: predniSONE 20 MG TAB ONE (19:23)
--- NOTE | 2020-10-01 09:48 | Consultation ---
History of Present Illness - Reason for Consult Consult date: 10/01/20 Reason for consult: MHE Requesting physician: AMIE GARCIAS - History of Present Psychiatric Illness Per ED Provider This is a 39 yo male with hx of schizophrenia, cocaine dependence, asthma, seizures who presents with depression, anxiety and plan to hang himself. He has a lot of family problems. He has been stressed. He relapsed. He recently used cocaine. He denies auditory hallucinations. He denies homicidal ideation. PSYCH HPI Patient is a 39-year-old unemployed, currently lives with mom and single -[place]ian male with past psychiatric history of schizophrenia who presented to the ED with chief complaints of depression and worsening anxiety with plan trying himself. Patient stated he is just feeling very bad this days, got very depressed anything his current medications are not helping and he does not believe he is on an antidepressant at the moment. Patient reported feeling suicidal, poor sleep pattern no nightmares though, and he endorses good appetite and also denies auditory visual hallucinations. Patient endorses recent drug use. PAST PSYCHIATRIC HISTORY Diagnoses: Schizophrenia Suicide attempts or Self-harm behavior: None reported Prior psychiatric hospitalizations: Yes Substance Abuse history: Crack cocaine and marijuana Previous psychiatric medications tried: Haldol Outpatient treatment: Yes PAST MEDICAL HISTORY: Anemia Family Psychiatric History: None reported or documented SOCIAL HISTORY Marital Status: Single Living Arrangements: With mom Employment Status: Unemployed Access to guns/weapons: None reported Education: Eighth grade dropout History of Abuse: None reported Legal History: Yes imprisonment REVIEW OF SYSTEMS Constitutional: Negative for weight loss ENT: Negative for stridor Respiratory: Negative for cough or hemoptysis All other systems reviewed and are negative MENTAL STATUS EXAMINATION General Appearance and Behavior: Age appropriate, good hygiene, wearing appropriate clothes, good eye contact, cooperativewith questioning and polite Cooperation: Participating/engaged Psychomotor Behavior: unremarkable and within normal limits Mood: Depressed Affect and affective range: congruent with mood Thought Process: Fluent/Logical Thought Content: Within reality Speech: Normal volume, Regular rate and rhythm. Intellectual Functioning: Average Suicidal Ideation: Suicidal Homicidal Ideation: Denies HI Impulse Control: impaired Insight and Judgment: limited insight and judgment Memory: Normal Attention: Normal Orientation: Alert, oriented. Assessment and Plan - Psychiatric problem (1) Polysubstance abuse Current Visit: No Status: Acute (2) Schizophrenia Current Visit: No Status: Acute Qualifiers: Schizophrenia type: unspecified Qualified Code(s): F20.9 - Schizophrenia, unspecified RECOMMENDATIONS Patient has history of polysubstance abuse, again patient was positive for cocaine and marijuana for this visit. Patient home medications restarted. Patient has history of noncompliance but will continue to monitor MEDICATIONS: Risks, benefits and alternatives of medications discussed with the patient, questions answered and consent obtained from patient. PSYCHOTHERAPY: Supportive psychotherapy provided MEDICAL: Per primary team DELIRIUM PRECAUTIONS: Please re-orient patient frequently, keep lights on during the day, and minimize benzodiazepines and opiates as these medications could worsen patient's confusion. [employer]: non indicated DISPOSITION: Recommend acute inpatient psychiatric hospitalization at this time LEGAL STATUS: 1013 FOLLOW-UP: Will follow Thank you for the consult. Please contact with any questions and/or concerns. Medications and Allergies Allergies Allergy/AdvReac Type Severity Reaction Status Date / Time No Known Allergies Allergy Verified 03/13/20 20:58 Home Medications Medication Instructions Recorded Confirmed Last Taken Type Doxepin [SINEquan] 10 mg PO QHS #30 capsule 12/14/19 05/13/20 Unknown Rx FLUoxetine HCL [Prozac] 40 mg PO DAILY #30 capsule 12/14/19 05/13/20 Unknown Rx risperiDONE [RisperDAL] 0.25 mg PO BID #60 tab 12/14/19 05/13/20 Unknown Rx haloperidoL [Haldol] 2 mg PO BID #60 tablet 04/15/20 05/13/20 Unknown Rx traZODone [Desyrel] 100 mg PO QHS #30 04/15/20 05/13/20 Unknown Rx Mental Status Exam - Vital signs Last Vital Signs Temp 98.3 F 10/01/20 07:53 Pulse 84 10/01/20 07:53 Resp 16 10/01/20 07:53 BP 117/76 10/01/20 07:53 Pulse Ox 98 10/01/20 07:53 Results Result Diagrams: 09/30/20 10:45 09/30/20 10:45 Abnormal lab results 09/30/20 09/30/20 09/30/20 Range/Units 10:45 10:45 10:45 WBC (4.5-11.0) K/mm3 RBC (3.65-5.03) M/mm3 MCV (84-94) fl MCH (28-32) pg Lymph % (Auto) (13.4-35.0) % [place] # (Auto) (0.0-0.8) K/mm3 Baso # (Auto) (0.0-0.1) K/mm3 Seg Neutrophils % (40.0-70.0) % Seg Neutrophils # (1.8-7.7) K/mm3 Sodium 135 L (137-145) mmol/L Creatinine 0.7 L (0.8-1.3) mg/dL Salicylates < 0.3 L (2.8-20.0) mg/dL Acetaminophen 5.0 L (10.0-30.0) ug/mL 09/30/20 Range/Units 10:45 WBC 16.2 H (4.5-11.0) K/mm3 RBC 5.51 H (3.65-5.03) M/mm3 MCV 75 L (84-94) fl MCH 24 L (28-32) pg Lymph % (Auto) 13.2 L (13.4-35.0) % [place] # (Auto) 0.9 H (0.0-0.8) K/mm3 Baso # (Auto) 0.2 H (0.0-0.1) K/mm3 Seg Neutrophils % 80.1 H (40.0-70.0) % Seg Neutrophils # 13.0 H (1.8-7.7) K/mm3 Sodium (137-145) mmol/L Creatinine (0.8-1.3) mg/dL Salicylates (2.8-20.0) mg/dL Acetaminophen (10.0-30.0) ug/mL All other labs normal.
[2020-10-01] MEDS ORDERED: FLUoxetine 20 MG CAP PO SCH (12:00)
[2020-10-01] MEDS ORDERED: risperiDONE 0.25 MG TAB PO SCH (12:00)
[2020-10-01] MEDS ORDERED: risperiDONE 1 MG TAB PO SCH (12:00)
[2020-10-01 15:18] VITALS: BP 126/75
[2020-10-01] MEDS ORDERED: traZODone 100 MG TAB PO SCH (22:00)
== END 2020-10-01 18:56 | disposition admitted as inpatient to this hospital (09) ==
LOC: ED 09:09
DX: R45.851 Suicidal ideations (principal); F20.9 Schizophrenia, unspecified; F14.20 Cocaine dependence, uncomplicated; R56.9 Unspecified convulsions; J45.909 Unspecified asthma, uncomplicated; F12.10 Cannabis abuse, uncomplicated; Z98.890 Other specified postprocedural states; Z79.899 Other long term (current) drug therapy
CPT/HCPCS: 36415; 80048; 80307; 81001; 85025; 99285; J7512; 80320; G0480

== ENCOUNTER 2020-11-14 23:15 | Emergency (ER) | payer MEDICAID ==
[2020-11-14 23:22] VITALS: BP 148/87
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
== END 2020-11-15 04:13 | disposition home or self-care (01) ==
LOC: ED 23:15
DX: J20.9 Acute bronchitis, unspecified (principal); J01.10 Acute frontal sinusitis, unspecified; R56.9 Unspecified convulsions; J45.909 Unspecified asthma, uncomplicated; F12.10 Cannabis abuse, uncomplicated; F14.10 Cocaine abuse, uncomplicated; Z98.890 Other specified postprocedural states; Z79.2 Long term (current) use of antibiotics; Z79.899 Other long term (current) drug therapy
CPT/HCPCS: 99282

== ENCOUNTER 2020-11-30 01:55 | Emergency (ER) | payer MEDICAID ==
[2020-11-30 03:16] LABS: Basophils # (Auto) 0.1 K/mm3 (0.0-0.1); Basophils % (Auto) 0.5 % (0.0-1.8); Hematocrit 43.3 % (35.5-45.6); Hemoglobin 13.5 gm/dl (11.8-15.2); Lymphocytes # (Auto) 2.8 K/mm3 (1.2-5.4); Lymphocytes % (Auto) 15.3 % (13.4-35.0); Mean Corpuscular HGB Conc 31 % (32-34); Mean Corpuscular Volume 77 fl (84-94); Monocytes # (Auto) 1.2 K/mm3 (0.0-0.8); Monocytes % (Auto) 6.8 % (0.0-7.3); Platelet Count 319 K/mm3 (140-440); Red Blood Count 5.65 M/mm3 (3.65-5.03); Red Cell Distribution Width 14.1 % (13.2-15.2)
[2020-11-30 03:28] LABS: BUN/Creatinine Ratio 10; Blood Urea Nitrogen 10 mg/dL (9-20); Calcium 9.6 mg/dL (8.4-10.2); Hemolysis Index 5
[2020-11-30 04:20] LABS: Bilirubin,Urine NEG (Negative); Blood,Urine NEG (Negative); Color,Urine Yellow (Yellow); Mucus,Urine FEW /HPF; Protein,Urine <15 mg/dL mg/dL (Negative); RBC,Urine < 1.0 /HPF (0.0-6.0); Urobilinogen,Urine < 2.0 mg/dL (<2.0); WBC,Urine < 1.0 /HPF (0.0-6.0)
[2020-11-30 04:27] LABS: Amphetamine Screen,Urine PRESUMPTIVE NEGATIVE; Benzodiazepines Screen,Urine PRESUMPTIVE NEGATIVE; Cannabinoid Screen,Urine PRESUMPTIVE POSITIVE; Cocaine Screen,Urine PRESUMPTIVE POSITIVE; Methadone Screen,Urine PRESUMPTIVE NEGATIVE; Opiate Screen,Urine PRESUMPTIVE NEGATIVE
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
--- NOTE | 2020-11-30 10:44 | Consultation ---
History of Present Illness - Reason for Consult Consult date: 11/30/20 Reason for consult: hearing voices, suicidal - History of Present Psychiatric Illness ED note states "This is a 40-year-old -[place] male presents to the emergency department with a complaint of auditory hallucinations and suicidal ideations. Patient has a history of paranoid schizophrenia. He says he has been compliant with his psychiatric medications, Zoloft and Seroquel, but it has not helped. He is hearing voices that are telling him to hang himself. Patient admits to "self-medicating" with some recent cocaine and marijuana but does not appear acutely intoxicated. He also has a past medical history of asthma and seizures. He denies any homicidal ideations." During my interview with the patient, he is lying in bed awake. a/ox 3. He is calm and cooperative, He states the he was at [facility] a couple of months ago and he doesn't think his medications are not right, and not working like they initially were. When asking the patient why didn't he follow up with outpatient, he says "things just got bad like this." He says he takes seroquel and zoloft. The patient says he's been up all night, hearing voices telling him to hang himself, having racing thoughts and feeling suicidal. The patient says it has gotten worse over the last three days. The patient reports a use of cocaine, and THC. PAST PSYCHIATRIC HISTORY Diagnoses: Schizophrenia Suicide attempts or Self-harm behavior: None reported Prior psychiatric hospitalizations: Yes Substance Abuse history: Crack cocaine and marijuana Previous psychiatric medications tried: Haldol, seroquel, zoloft, risperidone Outpatient treatment: Yes PAST MEDICAL HISTORY: Anemia Family Psychiatric History: None reported or documented SOCIAL HISTORY Marital Status: Single Living Arrangements: With mom Employment Status: Unemployed Access to guns/weapons: None reported Education: Eighth grade dropout History of Abuse: None reported Legal History: Yes imprisonment REVIEW OF SYSTEMS Constitutional: Negative for weight loss ENT: Negative for stridor Respiratory: Negative for cough or hemoptysis All other systems reviewed and are negative MENTAL STATUS EXAMINATION General Appearance and Behavior: Age appropriate, good hygiene, wearing appr opriate clothes, good eye contact, cooperativewith questioning and polite Cooperation: Participating/engaged Psychomotor Behavior: unremarkable and within normal limits Mood: Depressed Affect and affective range: congruent with mood Thought Process: Fluent/Logical Thought Content: Within reality Speech: Normal volume, Regular rate and rhythm. Intellectual Functioning: Average Suicidal Ideation: Suicidal Homicidal Ideation: Denies HI Impulse Control: impaired Insight and Judgment: limited insight and judgment Memory: Normal Attention: Normal Orientation: Alert, oriented. Assessment and Plan (1) Cocaine Dependence (F14.20) Current Visit: No Status: Acute (2) Schizophrenia (F20.9) Current Visit: No Status: Acute (3) Noncompliance with other treatments and regimen (Z91.10) Treatment MEDICATIONS: Restart seroquel 100mg po BID Restart zoloft 25mg po daily Start Depakote dr 125mg po BID Start Trazodone 50mg po qhs Risks, benefits and alternatives of medications discussed with the patient, questions answered and consent obtained from patient. PSYCHOTHERAPY: Supportive psychotherapy provided MEDICAL: Per primary team DELIRIUM PRECAUTIONS: Please re-orient patient frequently, keep lights on during the day, and minimize benzodiazepines and opiates as these medications could worsen patient's confusion. RETAIL SUPPORT ASSOCIATE: non indicated DISPOSITION: Recommend acute inpatient psychiatric hospitalization at this time. Case staffed with Dr. Orozco, agrees with plan LEGAL STATUS: 1013 FOLLOW-UP: Will follow Thank you for the consult. Please contact with any questions and/or concerns. Medications and Allergies Allergies Allergy/AdvReac Type Severity Reaction Status Date / Time No Known Allergies Allergy Verified 03/13/20 20:58 Home Medications Medication Instructions Recorded Confirmed Last Taken Type Doxepin [SINEquan] 10 mg PO QHS #30 capsule 12/14/19 05/13/20 Unknown Rx FLUoxetine HCL [Prozac] 40 mg PO DAILY #30 capsule 12/14/19 05/13/20 Unknown Rx risperiDONE [RisperDAL] 0.25 mg PO BID #60 tab 12/14/19 05/13/20 Unknown Rx haloperidoL [Haldol] 2 mg PO BID #60 tablet 04/15/20 05/13/20 Unknown Rx traZODone [Desyrel] 100 mg PO QHS #30 04/15/20 05/13/20 Unknown Rx Azithromycin [Zithromax Z-LEONEL] 250 mg PO DAILY #6 tablet 11/15/20 Unknown Rx Benzonatate [Tessalon Perles] 100 mg PO Q8HR #30 capsule 11/15/20 Unknown Rx Cetirizine HCl [Zyrtec 10mg tab] 10 mg PO DAILY #20 tablet 11/15/20 Unknown Rx predniSONE [Deltasone] 40 mg PO QDAY #10 tab 11/15/20 Unknown Rx Mental Status Exam - Vital signs Last Vital Signs Temp 98.4 F 11/30/20 02:21 Pulse 94 H 11/30/20 02:21 Resp 18 11/30/20 02:21 BP 134/86 11/30/20 02:21 Pulse Ox 95 11/30/20 02:21 Results Result Diagrams: 11/30/20 02:48 11/30/20 02:48 Abnormal lab results 11/30/20 11/30/20 11/30/20 Range/Units 02:48 02:48 02:48 WBC 18.1 H (4.5-11.0) K/mm3 RBC 5.65 H (3.65-5.03) M/mm3 MCV 77 L (84-94) fl MCH 24 L (28-32) pg MCHC 31 L (32-34) % [place] # (Auto) 1.2 H (0.0-0.8) K/mm3 Seg Neutrophils % 77.4 H (40.0-70.0) % Seg Neutrophils # 14.0 H (1.8-7.7) K/mm3 Salicylates < 0.3 L (2.8-20.0) mg/dL Acetaminophen 5.0 L (10.0-30.0) ug/mL All other labs normal.
[2020-11-30] MEDS: DIVALPROEX DR 125 MG TAB PO SCH ×2 (11:47→22:47)
[2020-11-30] MEDS: SERTRALINE 25 MG TAB PO SCH (11:48)
[2020-11-30] MEDS: QUEtiapine 100 MG TAB PO SCH ×2 (11:48→22:47)
[2020-11-30] MEDS ORDERED: ACETAMINOPHEN 325 MG TAB PO ONE (18:48)
[2020-11-30] MEDS ORDERED: traZODone 50 MG TAB PO SCH (22:00)
--- NOTE | 2020-12-01 08:34 | Progress Note ---
Subjective - Reason for Consult Consult date: 12/01/20 Reason for consult: hallucinations, SI - Chief Complaint Chief complaint: During my interview with the patient, he is awake. He is calm and cooperative. The patient is asking if his medications were adjusted. He says "I just don't feel like they are right." The patient denies hallucinations at present. He reports suicidal thoughts by wanting to "hang" himself. REVIEW OF SYSTEMS Constitutional: Negative for weight loss ENT: Negative for stridor Respiratory: Negative for cough or hemoptysis All other systems reviewed and are negative MENTAL STATUS EXAMINATION General Appearance and Behavior: Age appropriate, good hygiene, wearing appropriate clothes, good eye contact, cooperative with questioning and polite Cooperation: Participating/engaged Psychomotor Behavior: unremarkable and within normal limits Mood: Depressed Affect and affective range: congruent with mood Thought Process: Fluent/Logical Thought Content: Within reality Speech: Normal volume, Regular rate and rhythm. Intellectual Functioning: Average Suicidal Ideation: Suicidal Homicidal Ideation: Denies HI Impulse Control: impaired Insight and Judgment: limited insight and judgment Memory: Normal Attention: Normal Orientation: Alert, oriented. Assessment and Plan (1) Cocaine Dependence (F14.20) Current Visit: No Status: Acute (2) Schizophrenia (F20.9) Current Visit: No Status: Acute (3) Noncompliance with other treatments and regimen (Z91.10) Treatment MEDICATIONS: Increased Depakote DR 250mg po BID Risks, benefits and alternatives of medications discussed with the patient, questions answered and consent obtained from patient. PSYCHOTHERAPY: Supportive psychotherapy provided MEDICAL: Per primary team DELIRIUM PRECAUTIONS: Please re-orient patient frequently, keep lights on during the day, and minimize benzodiazepines and opiates as these medications could worsen patient's confusion. PERSONAL LINES APPRAISER: non indicated DISPOSITION: Recommend acute inpatient psychiatric hospitalization at this time. Case staffed with Dr. Orozco, agrees with plan LEGAL STATUS: 1013 FOLLOW-UP: Will follow Thank you for the consult. Please contact with any questions and/or concerns. Mental Status Exam - Vital signs Last Vital Signs Temp 97.9 F 12/01/20 01:00 Pulse 83 12/01/20 01:00 Resp 18 12/01/20 01:00 BP 128/70 12/01/20 01:00 Pulse Ox 99 12/01/20 01:00
[2020-12-01] MEDS: DIVALPROEX DR 125 MG TAB PO SCH (11:00)
[2020-12-01] MEDS: SERTRALINE 25 MG TAB PO SCH (11:01)
[2020-12-01] MEDS: QUEtiapine 100 MG TAB PO SCH (11:01)
[2020-12-01 20:36] VITALS: BP 121/73
== END 2020-12-01 21:30 ==
LOC: ED 01:55
DX: F20.0 Paranoid schizophrenia (principal); R45.851 Suicidal ideations; F17.200 Nicotine dependence, unspecified, uncomplicated; J45.909 Unspecified asthma, uncomplicated; Z79.899 Other long term (current) drug therapy; Z20.828 Contact with and (suspected) exposure to other viral communicable diseases; Z98.890 Other specified postprocedural states; Z86.69 Personal history of other diseases of the nervous system and sense organs
CPT/HCPCS: 36415; 80048; 80307; 81001; 85025; 99285; U0003; 80320; G0480

== ENCOUNTER 2020-12-12 00:55 | Emergency (ER) | payer MEDICAID ==
--- NOTE | 2020-12-12 01:43 | XRay Report ---
CHEST 1 VIEW 12/12/2020 1:39 AM INDICATION / CLINICAL INFORMATION: cough. COMPARISON: None available. FINDINGS: SUPPORT DEVICES: None. HEART / MEDIASTINUM: No significant abnormality. LUNGS / PLEURA: No significant pulmonary or pleural abnormality. No pneumothorax. ADDITIONAL FINDINGS: No significant additional findings. IMPRESSION: 1. No acute findings. Signer Name: Gilles Waldrop MD Signed: 12/12/2020 1:38 AM Workstation Name: [id number]
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
[2020-12-12 02:08] VITALS: BP 128/88
== END 2020-12-12 02:12 | disposition home or self-care (01) ==
LOC: ED 00:55
DX: J20.9 Acute bronchitis, unspecified (principal); J06.9 Acute upper respiratory infection, unspecified; R56.9 Unspecified convulsions; J45.909 Unspecified asthma, uncomplicated; F17.200 Nicotine dependence, unspecified, uncomplicated; Z98.890 Other specified postprocedural states; Z79.2 Long term (current) use of antibiotics; Z79.899 Other long term (current) drug therapy
CPT/HCPCS: 71045

== ENCOUNTER 2020-12-21 03:12 | Emergency (ER) | payer MEDICAID ==
[2020-12-21 04:14] LABS: Basophils # (Auto) 0.1 K/mm3 (0.0-0.1); Basophils % (Auto) 0.7 % (0.0-1.8); Eosinophils % (Auto) 0.1 % (0.0-4.3); Lymphocytes # (Auto) 1.9 K/mm3 (1.2-5.4); Lymphocytes % (Auto) 15.6 % (13.4-35.0); Mean Corpuscular HGB Conc 31 % (32-34); Mean Corpuscular Volume 77 fl (84-94); Monocytes # (Auto) 0.8 K/mm3 (0.0-0.8); Monocytes % (Auto) 6.3 % (0.0-7.3); Platelet Count 404 K/mm3 (140-440); Red Blood Count 5.66 M/mm3 (3.65-5.03); Red Cell Distribution Width 14.2 % (13.2-15.2)
[2020-12-21 04:15] LABS: BUN/Creatinine Ratio 11; Blood Urea Nitrogen 11 mg/dL (9-20); Calcium 9.5 mg/dL (8.4-10.2); Hemolysis Index 7
[2020-12-21 04:18] LABS: Hematocrit 43.8 % (35.5-45.6); Hemoglobin 13.4 gm/dl (11.8-15.2)
[2020-12-21 05:02] LABS: Bilirubin,Urine NEG (Negative); Blood,Urine NEG (Negative); Color,Urine Yellow (Yellow); Mucus,Urine FEW /HPF; Protein,Urine <15 mg/dL mg/dL (Negative); Urobilinogen,Urine < 2.0 mg/dL (<2.0); WBC,Urine < 1.0 /HPF (0.0-6.0)
[2020-12-21 05:07] LABS: Amphetamine Screen,Urine PRESUMPTIVE NEGATIVE; Benzodiazepines Screen,Urine PRESUMPTIVE NEGATIVE; Cannabinoid Screen,Urine PRESUMPTIVE POSITIVE; Cocaine Screen,Urine PRESUMPTIVE POSITIVE; Methadone Screen,Urine PRESUMPTIVE NEGATIVE; Opiate Screen,Urine PRESUMPTIVE NEGATIVE
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
[2020-12-21] MEDS ORDERED: QUEtiapine 100 MG TAB PO SCH (10:00)
[2020-12-21] MEDS ORDERED: FLUoxetine 20 MG CAP PO SCH (10:00)
--- NOTE | 2020-12-21 10:48 | Consultation ---
History of Present Illness - Reason for Consult Consult date: 12/21/20 Reason for consult: MHE Requesting physician: LISA CORTES - History of Present Psychiatric Illness PSYCH HPI Patient is a 39-year-old unemployed, currently lives with mom and single -[place] male with past psychiatric history of schizophrenia who presented to the ED with chief complaints of depression and suicidal ideation accompanied by hallucination without any probable known triggers. Patient endores cocoaine use 2 days ago and says he has been complaint with home medications. Patient known to me from previous visits. PAST PSYCHIATRIC HISTORY Diagnoses: Schizophrenia Suicide attempts or Self-harm behavior: None reported Prior psychiatric hospitalizations: Yes Substance Abuse history: Crack cocaine and marijuana Previous psychiatric medications tried: Haldol Outpatient treatment: Yes PAST MEDICAL HISTORY: Anemia Family Psychiatric History: None reported or documented SOCIAL HISTORY Marital Status: Single Living Arrangements: With mom Employment Status: Unemployed Access to guns/weapons: None reported Education: Eighth grade dropout History of Abuse: None reported Legal History: Yes imprisonment REVIEW OF SYSTEMS Constitutional: Negative for weight loss ENT: Negative for stridor Respiratory: Negative for cough or hemoptysis All other systems reviewed and are negative MENTAL STATUS EXAMINATION General Appearance and Behavior: Age appropriate, good hygiene, wearing appropriate clothes, good eye contact, cooperativewith questioning and polite Cooperation: Participating/engaged Psychomotor Behavior: unremarkable and within normal limits Mood: Depressed Affect and affective range: congruent with mood Thought Process: Fluent/Logical Thought Content: Within reality Speech: Normal volume, Regular rate and rhythm. Intellectual Functioning: Average Suicidal Ideation: Homicidal Ideation: Denies HI Impulse Control: impaired Insight and Judgment: limited insight and judgment Memory: Normal Attention: Normal Orientation: Alert, oriented. Assessment and Plan - Psychiatric problem (1) Polysubstance abuse Current Visit: No Status: Acute (2) Schizophrenia Current Visit: No Status: Acute Qualifiers: Schizophrenia type: unspecified Qualified Code(s): F20.9 - Schizophrenia, unspecified RECOMMENDATIONS Patient has history of polysubstance abuse, again patient was positive for cocaine and marijuana for this visit and endorses use. Recommend substance abuse outpt program at this time. Patient is known to me from prior encounters. Patient has received intervention and stabilized in inpatient service with medications less than 2 months ago. patient current risk factors are not currently modifiable with acute inpatient psychiatric hospitalization based on history, the patient is seeking secondary gain for inpatient care as regards to food, medication mostly ativan hence psychiatrically hospitalizing this patient is contraindicated, as it will reinforce maladaptive behaviors of coming to the hospital for those specific reasons. Patient presenting symptoms can be managed outpt. Patient states he has home medications.. Patient has history of noncompliance but will continue to monitor MEDICATIONS: Risks, benefits and alternatives of medications discussed with the patient, questions answered and consent obtained from patient. PSYCHOTHERAPY: Supportive psychotherapy provided MEDICAL: Per primary team DELIRIUM PRECAUTIONS: Please re-orient patient frequently, keep lights on during the day, and minimize benzodiazepines and opiates as these medications could worsen patient's confusion. ICING MACHINE OPERATOR: non indicated DISPOSITION: Do not Recommend acute inpatient psychiatric hospitalization at this time LEGAL STATUS: Voluntary FOLLOW-UP: Will sign of Thank you for the consult. Please contact with any questions and/or concerns. Medications and Allergies Allergies Allergy/AdvReac Type Severity Reaction Status Date / Time No Known Allergies Allergy Verified 03/13/20 20:58 Home Medications Medication Instructions Recorded Confirmed Last Taken Type Doxepin [SINEquan] 10 mg PO QHS #30 capsule 12/14/19 05/13/20 Unknown Rx FLUoxetine HCL [Prozac] 40 mg PO DAILY #30 capsule 12/14/19 05/13/20 Unknown Rx risperiDONE [RisperDAL] 0.25 mg PO BID #60 tab 12/14/19 05/13/20 Unknown Rx haloperidoL [Haldol] 2 mg PO BID #60 tablet 04/15/20 05/13/20 Unknown Rx traZODone [Desyrel] 100 mg PO QHS #30 04/15/20 05/13/20 Unknown Rx Cetirizine HCl [Zyrtec 10mg tab] 10 mg PO DAILY #20 tablet 11/15/20 Unknown Rx Azithromycin [Zithromax Z-LEONEL] 250 mg PO DAILY #6 tablet 12/12/20 Unknown Rx Benzonatate [Tessalon Perles] 100 mg PO Q8HR #30 capsule 12/12/20 Unknown Rx predniSONE [Deltasone] 40 mg PO QDAY #10 tab 12/12/20 Unknown Rx Active Meds: Active Medications Fluoxetine HCl (Fluoxetine 20 Mg Cap) 20 mg PO DAILY ROHIT Quetiapine Fumarate (Quetiapine 100 Mg Tab) 100 mg PO DAILY [facility] Mental Status Exam - Vital signs Last Vital Signs Temp 97.8 F 12/21/20 03:15 Pulse 98 H 12/21/20 03:15 Resp 18 12/21/20 03:15 BP 137/79 12/21/20 03:15 Pulse Ox 99 12/21/20 03:15 Results Result Diagrams: 12/21/20 03:43 12/21/20 03:43 Abnormal lab results 12/21/20 12/21/20 12/21/20 Range/Units 03:43 03:43 03:43 WBC 12.4 H (4.5-11.0) K/mm3 RBC 5.66 H (3.65-5.03) M/mm3 MCV 77 L (84-94) fl MCH 24 L (28-32) pg MCHC 31 L (32-34) % Seg Neutrophils % 77.3 H (40.0-70.0) % Seg Neutrophils # 9.6 H (1.8-7.7) K/mm3 Ur Specific [place] (1.003-1.030) Salicylates < 0.3 L (2.8-20.0) mg/dL Acetaminophen 40.8 H (10.0-30.0) ug/mL 12/21/20 Range/Units Unknown WBC (4.5-11.0) K/mm3 RBC (3.65-5.03) M/mm3 MCV (84-94) fl MCH (28-32) pg MCHC (32-34) % Seg Neutrophils % (40.0-70.0) % Seg Neutrophils # (1.8-7.7) K/mm3 Ur Specific [place] 1.043 H (1.003-1.030) Salicylates (2.8-20.0) mg/dL Acetaminophen (10.0-30.0) ug/mL All other labs normal.
[2020-12-21 11:24] LABS: Creatine Kinase MB 13.2 ng/mL (0.0-4.0)
[2020-12-21 11:57] VITALS: BP 123/77
== END 2020-12-21 12:00 | disposition home or self-care (01) ==
LOC: ED 03:12
DX: R45.851 Suicidal ideations (principal); F19.10 Other psychoactive substance abuse, uncomplicated; R56.9 Unspecified convulsions; F20.0 Paranoid schizophrenia; J45.909 Unspecified asthma, uncomplicated; F17.200 Nicotine dependence, unspecified, uncomplicated; F12.10 Cannabis abuse, uncomplicated; Z79.2 Long term (current) use of antibiotics; Z79.899 Other long term (current) drug therapy
CPT/HCPCS: 36415; 80048; 80307; 80320; 81001; 82550; 82553; 85025; G0480

== ENCOUNTER 2020-12-21 12:20 | Emergency (ER) | payer MEDICAID ==
[2020-12-21] MEDS ORDERED: SODIUM CHLORIDE 0.9% 1000 ML 1,000 ML IV ONE ×2 (16:05→16:06)
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
[2020-12-22 09:15] VITALS: BP 132/84
--- NOTE | 2020-12-22 09:42 | Consultation ---
History of Present Illness - Reason for Consult Consult date: 12/22/20 Reason for consult: MHE Requesting physician: SY GARCIAS - History of Present Psychiatric Illness Per ED Provider: Patient is a 40-year-old F Green[place]ic male who is presenting with active suicidal ideations. Patient was just cleared from our emergency department. He has had suicidal ideations for good portion of his adult life and also uses cocaine and marijuana. Patient states that his thoughts of wanting to harm himself worsened after being discharged. Psych team believe that he is here for secondary gain. However patient now expressing active thoughts and states that if he leaves he is going to go home and get his 38 caliber gun to shoot himself in the head. This was mentioned to the ER physician and psych PA earlier today but was stated in more passive way. Patient now having active thoughts. He is denying any homicidal ideations. Patient does state that he his cocaine abuse is one of the reasons why he feels like he is suicidal. Patient is requesting inpatient therapy. Per MHE: Pt is a 40 year old AA male; Per triage note, "pt c/o SI, that he states he has had "all my life". reports his plan is to shoot himself. States "I need long-term care to figure out my life, they don't need to let me go". recently discharged for same, and refuses to follow up outpatient services." Pt reports that he resides at [address] [place] [address] with his mother; pt then reports that he is not allowed to return home. Pt told this telesales consultant that he was discharged this morning and went back to his mother's house, and his mother sent him back to this ED. However, later in the assessment, pt reports that his mother is not aware that he is here and he can not return to her house due to drug use. Pt also reports that he does not have an ID. Pt reports that he receives Medicaid. Pt reports that he used cocaine "once" ("I only did it once... last night); pt is NOT seem forthcoming, as pt has a history of substance use (cocaine). Pt reports that he is now having suicidal thoughts with a plan to get a gun that is located at his home; this telesales consultant questioned the pt as the pt stated earlier he does not have a home as his mother will not allow him back. "O I mean at a friend's house." (Pt unwilling to provide address to where the gun is located). Pt reports that his stressors causing the suicidal thoughts are: HAVING NO HOUSING (not allowed to come back to his mother's home) and HAVING NO ID (explained to the patient about [facility] where they have programs to assist with getting ID; pt said he has not tried those programs as he wants help finding a low income housing; explained to the pt that the ER does not assist with finding housing; he needs to follow up with an ACT team that provides therapy, psychiatry and social services director assistance. Provided the list of outpatient referrals and ACT team in discharge packet where pt came to this ER earlier today; advised the pt that he needs to review that list.) Pt is not following up with outpatient treatment in an unknown amount of time and continues to engage in substance use. Pt reports that his depression increases when he partakes in cocaine. Pt reports no thoughts or plans to harm others; "no, no; I'm not a violent person." Pt is alert and oriented x 4. Pt does not appear to be experiencing any psychosis; pt has good focus and good concentration (pt identifies that he needs an ID, low income housing, etc). Pt is able to advocate for himself and is not responding to internal stimuli. However, the pt reports that he is experiencing command auditory hallucinations to kill himself, "because I'm not gonna amount to anything." Pt reports that he carries a diagnosis of, "Paranoid Schizophrenia and Bipolar Disorder. Pt is NOT compliant with outpatient psychaitry or therapy. Pt reports he is unsure of how long it has been since he took his medications (Prozac, Seroquel). Pt has been to inpatient multiple times, "I've been alot of places, [facility], the one in [place], [place], [place] in [facility], [facility]; pretty much all of them. Then they stopped taking Medicaid." PSYCH HPI Patient is a 39-year-old unemployed, currently lives with mom and single -Green[place]ic male with past psychiatric history of schizophrenia who presented to the ED with chief complaints of depression and suicidal ideation accompanied by hallucination without any probable known triggers. Patient was seen by me yesterday evaluated and discharged outpatient to follow-up with outpatient substance use resources due to patient being positive for cocaine which patient admits to using. Her mental health telesales consultant collateral information reviewed patient's mom as keep patient out of the house due to substance use patient currently does not have a place to stay hence why he is seeking inpatient services. Again patient is endorsing suicidal ideation patient informed will be discharged home. Patient known to me from previous visits. PAST PSYCHIATRIC HISTORY Diagnoses: Schizophrenia Suicide attempts or Self-harm behavior: None reported Prior psychiatric hospitalizations: Yes Substance Abuse history: Crack cocaine and marijuana Previous psychiatric medications tried: Haldol Outpatient treatment: Yes PAST MEDICAL HISTORY: Anemia Family Psychiatric History: None reported or documented SOCIAL HISTORY Marital Status: Single Living Arrangements: With mom Employment Status: Unemployed Access to guns/weapons: None reported Education: Eighth grade dropout History of Abuse: None reported Legal History: Yes imprisonment REVIEW OF SYSTEMS Constitutional: Negative for weight loss ENT: Negative for stridor Respiratory: Negative for cough or hemoptysis All other systems reviewed and are negative MENTAL STATUS EXAMINATION General Appearance and Behavior: Age appropriate, good hygiene, wearing appropriate clothes, good eye contact, cooperativewith questioning and polite Cooperation: Participating/engaged Psychomotor Behavior: unremarkable and within normal limits Mood: Depressed Affect and affective range: congruent with mood Thought Process: Fluent/Logical Thought Content: Within reality Speech: Normal volume, Regular rate and rhythm. Intellectual Functioning: Average Suicidal Ideation: Homicidal Ideation: Denies HI Impulse Control: impaired Insight and Judgment: limited insight and judgment Memory: Normal Attention: Normal Orientation: Alert, oriented. Assessment and Plan - Psychiatric problem (1) Polysubstance abuse Current Visit: No Status: Acute (2) Schizophrenia Current Visit: No Status: Acute Qualifiers: Schizophrenia type: unspecified Qualified Code(s): F20.9 - Schizophrenia, unspecified RECOMMENDATIONS Still recommending outpatient substance use programs per discussion with Dr. Orozco, patient seeking secondary gain after mom ejected him out of house for cocaine use, persistently. Patient has history of polysubstance abuse, again patient was positive for cocaine and marijuana for this visit and endorses use. Recommend substance abuse outpt program at this time. Patient is known to me from prior encounters. Patient has received intervention and stabilized in inpatient service with medications less than 2 months ago. patient current risk factors are not currently modifiable with acute inpatient psychiatric hospitalization based on history, the patient is seeking secondary gain for inpatient care as regards to food, medication mostly ativan hence psychiatrically hospitalizing this patient is contraindicated, as it will reinforce maladaptive behaviors of coming to the hospital for those specific reasons. Patient presenting symptoms can be managed outpt. Patient states he has home medications.. Patient has history of noncompliance but will continue to monitor MEDICATIONS: Risks, benefits and alternatives of medications discussed with the patient, questions answered and consent obtained from patient. PSYCHOTHERAPY: Supportive psychotherapy provided MEDICAL: Per primary team DELIRIUM PRECAUTIONS: Please re-orient patient frequently, keep lights on during the day, and minimize benzodiazepines and opiates as these medications could worsen patient's confusion. LITIGATOR: non indicated DISPOSITION: Do not Recommend acute inpatient psychiatric hospitalization at this time. Case discussed with Dr. Orozco. LEGAL STATUS: Voluntary FOLLOW-UP: Will sign off Thank you for the consult. Please contact with any questions and/or concerns. Medications and Allergies Allergies Allergy/AdvReac Type Severity Reaction Status Date / Time No Known Allergies Allergy Verified 03/13/20 20:58 Home Medications Medication Instructions Recorded Confirmed Last Taken Type Doxepin [SINEquan] 10 mg PO QHS #30 capsule 12/14/19 05/13/20 Unknown Rx FLUoxetine HCL [Prozac] 40 mg PO DAILY #30 capsule 12/14/19 05/13/20 Unknown Rx risperiDONE [RisperDAL] 0.25 mg PO BID #60 tab 12/14/19 05/13/20 Unknown Rx haloperidoL [Haldol] 2 mg PO BID #60 tablet 04/15/20 05/13/20 Unknown Rx traZODone [Desyrel] 100 mg PO QHS #30 04/15/20 05/13/20 Unknown Rx Cetirizine HCl [Zyrtec 10mg tab] 10 mg PO DAILY #20 tablet 11/15/20 Unknown Rx Azithromycin [Zithromax Z-LEONEL] 250 mg PO DAILY #6 tablet 12/12/20 Unknown Rx Benzonatate [Tessalon Perles] 100 mg PO Q8HR #30 capsule 12/12/20 Unknown Rx predniSONE [Deltasone] 40 mg PO QDAY #10 tab 12/12/20 Unknown Rx Mental Status Exam - Vital signs Last Vital Signs Temp 98.1 F 12/22/20 09:13 Pulse 87 12/22/20 09:13 Resp 18 12/22/20 09:13 BP 132/84 12/22/20 09:13 Pulse Ox 97 12/22/20 09:13 Results Abnormal lab results 12/21/20 12/21/20 Range/Units 16:11 16:11 Salicylates < 0.3 L (2.8-20.0) mg/dL Acetaminophen 5.0 L (10.0-30.0) ug/mL All other labs normal.
== END 2020-12-22 10:49 | disposition home or self-care (01) ==
LOC: ED 12:20
DX: R45.851 Suicidal ideations (principal); F20.9 Schizophrenia, unspecified; Z76.5 Malingerer [conscious simulation]; F19.10 Other psychoactive substance abuse, uncomplicated; R56.9 Unspecified convulsions; J45.909 Unspecified asthma, uncomplicated; F17.200 Nicotine dependence, unspecified, uncomplicated; F12.10 Cannabis abuse, uncomplicated; F14.10 Cocaine abuse, uncomplicated; Z98.890 Other specified postprocedural states; Z79.2 Long term (current) use of antibiotics; Z79.899 Other long term (current) drug therapy
CPT/HCPCS: 36415; 96360; 99284; J7030; 80320; G0480

== ENCOUNTER 2020-12-24 02:49 | Emergency (ER) | payer MEDICAID ==
--- NOTE | 2020-12-24 02:59 | Emergency Department Report ---
Blank Doc - Documentation Documentation: This is a 40-year-old male that presents with hallucinations and HI. Patient stated that he is " Yariel and will conquer and kill the world". This initial assessment/diagnostic orders/clinical plan/treatment(s) is/are subject to change based on patient's health status, clinical progression and re- assessment by fellow clinical providers in the ED. Further treatment and workup at subsequent clinical providers discretion. Patient/guardians urged not to elope from the ED as their condition may be serious if not clinically assessed and managed. Initial orders include: 1- Patient sent to MAIN ED for further evaluation and treatment 2- tar heater operator was notified to have patient be brought back RAMO. 3- RN was notified to keep patient as close range and observation until room available 4- Patient presents with substantial risk of imminent harm to self, appears to be so unable to care for his/her own physical health and safety as to create an imminently life-endangering crisis, and has committed/expressed life endangering crisis to self. Due to this and other complaints, patient is put on psych hold.
== END 2020-12-24 04:00 | disposition left against medical advice (07) ==
LOC: ED 02:49
DX: R44.3 Hallucinations, unspecified (principal)
CPT/HCPCS: 99282

== ENCOUNTER 2021-04-25 16:01 | Emergency (ER) | payer MEDICAID ==
[2021-04-25] MEDS ORDERED: SODIUM CHLORIDE 0.9% 1000 ML 1,000 ML IV ONE (17:25)
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
[2021-04-25 17:57] LABS: Basophils # (Auto) 0.1 K/mm3 (0.0-0.1); Basophils % (Auto) 0.5 % (0.0-1.8); Eosinophils % (Auto) 0.2 % (0.0-4.3); Hematocrit 31.8 % (35.5-45.6); Hemoglobin 10.5 gm/dl (11.8-15.2); Lymphocytes % (Auto) 16.2 % (13.4-35.0); Mean Corpuscular HGB Conc 33 % (32-34); Mean Corpuscular Volume 76 fl (84-94); Monocytes % (Auto) 8.3 % (0.0-7.3); Platelet Count 250 K/mm3 (140-440); Red Cell Distribution Width 14.3 % (13.2-15.2)
[2021-04-25 18:09] LABS: INR 0.87 (0.87-1.13)
[2021-04-25 18:10] LABS: Partial Thromboplastin Time 28.2 Sec. (24.2-36.6)
[2021-04-25 18:16] LABS: Alanine Aminotransferase 41 units/L (7-56); Albumin 3.8 g/dL (3.9-5); BUN/Creatinine Ratio 13; Blood Urea Nitrogen 10 mg/dL (9-20); Calcium 8.7 mg/dL (8.4-10.2); Hemolysis Index 8
[2021-04-25 18:19] LABS: Bilirubin,Direct < 0.2 mg/dL (0-0.2)
[2021-04-26 01:38] LABS: Alanine Aminotransferase 34 units/L (7-56); Albumin 3.3 g/dL (3.9-5)
[2021-04-26 01:39] LABS: Bilirubin,Direct < 0.2 mg/dL (0-0.2)
[2021-04-26 06:37] LABS: Amphetamine Screen,Urine Negative; Benzodiazepines Screen,Urine Negative; Methadone Screen,Urine Negative; Opiate Screen,Urine Negative
[2021-04-26 06:41] LABS: Amorphous Crystals,Urine Few; Bacteria,Urine 1+ /HPF (Negative); Bilirubin,Urine NEG (Negative); Blood,Urine NEG (Negative); Color,Urine Yellow (Yellow); Mucus,Urine FEW /HPF
[2021-04-26 06:54] LABS: Cannabinoid Screen,Urine Positive; Cocaine Screen,Urine Positive
--- NOTE | 2021-04-26 08:14 | Consultation ---
History of Present Illness - Reason for Consult Consult date: 04/26/21 Reason for consult: MHE Requesting physician: YAYA RIOS - History of Present Psychiatric Illness PSYCH HPI Patient is a 39-year-old unemployed, currently lives with mom and single -[place]ian male with past psychiatric history of schizophrenia who presented to the ED with chief complaints of overdose with suicidal intent. Patient states that he does not actually have any medications at home, that he feels fine now he does not know or remember what happened yesterday making him to to say what he said to the initial ED provider. Patient requesting to be restarted on his monthly shot or be given Zyprexa 10 mg oral medication because he did not previously have any medication and was just recently approved for Medicaid Patient known to me from previous visits. PAST PSYCHIATRIC HISTORY Diagnoses: Schizophrenia Suicide attempts or Self-harm behavior: None reported Prior psychiatric hospitalizations: Yes Substance Abuse history: Crack cocaine and marijuana Previous psychiatric medications tried: Haldol Outpatient treatment: Yes PAST MEDICAL HISTORY: Anemia Family Psychiatric History: None reported or documented SOCIAL HISTORY Marital Status: Single Living Arrangements: With mom Employment Status: Unemployed Access to guns/weapons: None reported Education: Eighth grade dropout History of Abuse: None reported Legal History: Yes imprisonment REVIEW OF SYSTEMS Constitutional: Negative for weight loss ENT: Negative for stridor Respiratory: Negative for cough or hemoptysis All other systems reviewed and are negative MENTAL STATUS EXAMINATION General Appearance and Behavior: Age appropriate, good hygiene, wearing appropriate clothes, good eye contact, cooperativewith questioning and polite Cooperation: Participating/engaged Psychomotor Behavior: unremarkable and within normal limits Mood: Feels fine Affect and affective range: congruent with mood Thought Process: Fluent/Logical Thought Content: Within reality Speech: Normal volume, Regular rate and rhythm. Intellectual Functioning: Average Suicidal Ideation: Denies Homicidal Ideation: Denies HI Impulse Control: impaired Insight and Judgment: limited insight and judgment Memory: Normal Attention: Normal Orientation: Alert, oriented. Assessment and Plan - Psychiatric problem (1) Polysubstance abuse Current Visit: No Status: Acute (2) Schizophrenia Current Visit: No Status: Acute Qualifiers: Schizophrenia type: unspecified Qualified Code(s): F20.9 - Schizophrenia, unspecified RECOMMENDATIONS patient requesting to be given a shot of restarted on Zyprexa because he does not have medications at home. Do not send patient home on oral meds rather I will give patient a one-time shot and request outpatient follow-up MEDICATIONS: Risks, benefits and alternatives of medications discussed with the patient, questions answered and consent obtained from patient. PSYCHOTHERAPY: Supportive psychotherapy provided MEDICAL: Per primary team DELIRIUM PRECAUTIONS: Please re-orient patient frequently, keep lights on during the day, and minimize benzodiazepines and opiates as these medications could worsen patient's confusion. COVERING MACHINE TENDER: non indicated DISPOSITION: Do not Recommend acute inpatient psychiatric hospitalization at this time. Case discussed with Dr. Orozco. LEGAL STATUS: Voluntary FOLLOW-UP: Will sign off Thank you for the consult. Please contact with any questions and/or concerns. Medications and Allergies Allergies Allergy/AdvReac Type Severity Reaction Status Date / Time No Known Allergies Allergy Verified 04/26/21 08:35 Home Medications Medication Instructions Recorded Confirmed Last Taken Type Doxepin [SINEquan] 10 mg PO QHS #30 capsule 12/14/19 05/13/20 Unknown Rx FLUoxetine HCL [Prozac] 40 mg PO DAILY #30 capsule 12/14/19 05/13/20 Unknown Rx risperiDONE [RisperDAL] 0.25 mg PO BID #60 tab 12/14/19 05/13/20 Unknown Rx haloperidoL [Haldol] 2 mg PO BID #60 tablet 04/15/20 05/13/20 Unknown Rx traZODone [Desyrel] 100 mg PO QHS #30 04/15/20 05/13/20 Unknown Rx Cetirizine HCl [Zyrtec 10mg tab] 10 mg PO DAILY #20 tablet 11/15/20 Unknown Rx Azithromycin [Zithromax Z-LEONEL] 250 mg PO DAILY #6 tablet 12/12/20 Unknown Rx Benzonatate [Tessalon Perles] 100 mg PO Q8HR #30 capsule 12/12/20 Unknown Rx predniSONE [Deltasone] 40 mg PO QDAY #10 tab 12/12/20 Unknown Rx Mental Status Exam - Vital signs Last Vital Signs Temp 98.0 F 04/26/21 05:35 Pulse 85 04/26/21 05:35 Resp 18 04/26/21 05:35 BP 113/80 04/26/21 05:35 Pulse Ox 100 04/26/21 05:35 Results Result Diagrams: 04/25/21 17:37 06/11/21 17:37 Abnormal lab results 04/25/21 04/25/21 04/25/21 Range/Units 17:37 17:37 17:37 WBC 12.5 H (4.5-11.0) K/mm3 Hgb 10.5 L (11.8-15.2) gm/dl Hct 31.8 L (35.5-45.6) % MCV 76 L (84-94) fl MCH 25 L (28-32) pg [place] % (Auto) 8.3 H (0.0-7.3) % [place] # (Auto) 1.0 H (0.0-0.8) K/mm3 Seg Neutrophils % 74.8 H (40.0-70.0) % Seg Neutrophils # 9.3 H (1.8-7.7) K/mm3 Glucose 111 H (75-100) mg/dL AST (5-40) units/L Total Protein (6.3-8.2) g/dL Albumin (3.9-5) g/dL Salicylates < 0.3 L (2.8-20.0) mg/dL Acetaminophen (10.0-30.0) ug/mL Valproic Acid (50-100) ug/mL 04/25/21 04/25/21 04/25/21 Range/Units 17:37 17:37 18:11 WBC (4.5-11.0) K/mm3 Hgb (11.8-15.2) gm/dl Hct (35.5-45.6) % MCV (84-94) fl MCH (28-32) pg [place] % (Auto) (0.0-7.3) % [place] # (Auto) (0.0-0.8) K/mm3 Seg Neutrophils % (40.0-70.0) % Seg Neutrophils # (1.8-7.7) K/mm3 Glucose (75-100) mg/dL AST 89 H (5-40) units/L Total Protein 6.0 L (6.3-8.2) g/dL Albumin 3.8 L (3.9-5) g/dL Salicylates (2.8-20.0) mg/dL Acetaminophen 5.0 L (10.0-30.0) ug/mL Valproic Acid 18.7 L (50-100) ug/mL 04/26/21 04/26/21 04/26/21 Range/Units 00:45 00:45 05:45 WBC (4.5-11.0) K/mm3 Hgb (11.8-15.2) gm/dl Hct (35.5-45.6) % MCV (84-94) fl MCH (28-32) pg [place] % (Auto) (0.0-7.3) % [place] # (Auto) (0.0-0.8) K/mm3 Seg Neutrophils % (40.0-70.0) % Seg Neutrophils # (1.8-7.7) K/mm3 Glucose (75-100) mg/dL AST 63 H (5-40) units/L Total Protein 5.7 L (6.3-8.2) g/dL Albumin 3.3 L (3.9-5) g/dL Salicylates (2.8-20.0) mg/dL Acetaminophen (10.0-30.0) ug/mL Valproic Acid 13.8 L 14.2 L (50-100) ug/mL All other labs normal.
[2021-04-26 08:35] VITALS: BP 135/93
[2021-04-26] MEDS ORDERED: HALOPERIDOL DECANOATE 100 MG/1 ML INJ IM NR ×2 (09:32→11:00)
[2021-04-26] MEDS ORDERED: BENZTROPINE 2 MG/2 ML INJ IM NR (09:33)
--- NOTE | 2021-04-26 10:43 | Event Note ---
Date: 04/26/21 40-year-old male with history of schizophrenia who initially presented with suicidal ideation and suspected attempted overdose on psychiatric medications. The patient was medically cleared and seen by the mental health brick chimney builder. The mental health brick chimney builder, in communication and agreement with Dr. Orozco of psychiatry, does not recommend 1013 or inpatient psychiatric treatment but rather recommends 1 dose of long-acting Haldol injection and discharge on no home medications with outpatient psychiatry follow-up. I personally spoke over the phone with FELICIANO Porras who confirms that this is the recommendation from psychiatry recognizing that the patient came in with suicidal ideation and suspected attempted overdose. Will discharge as recommended.
[2021-04-26] MEDS ORDERED: BENZTROPINE 2 MG/2 ML INJ IM ONE (10:48)
[2021-04-26] MEDS ORDERED: HALOPERIDOL DECANOATE 100 MG/1 ML INJ IM ONE (10:48)
--- NOTE | 2021-05-01 12:38 | Electrocardiograph Report ---
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
== END 2021-04-26 11:26 | disposition home or self-care (01) ==
LOC: ED 16:01
DX: T42.6X2A Poisoning by other antiepileptic and sedative-hypnotic drugs, intentional self-harm, initial encounter (principal); R45.851 Suicidal ideations; F20.9 Schizophrenia, unspecified; F14.10 Cocaine abuse, uncomplicated; R56.9 Unspecified convulsions; J45.909 Unspecified asthma, uncomplicated; Z98.890 Other specified postprocedural states; Z79.899 Other long term (current) drug therapy; Y92.89 Other specified places as the place of occurrence of the external cause
CPT/HCPCS: 36415; 80048; 80076; 80164; 80307; 81001; 85025; 85610; 85730; 93005; 96360; 96372; 99285; J0515; J1631; J7030; 80320; G0480

== ENCOUNTER 2021-05-18 00:18 | Emergency (ER) | payer MEDICAID | END 2021-05-18 02:44 | disposition left against medical advice (07) | LOC: ED 00:18 ==

== ENCOUNTER 2021-05-19 01:08 | Emergency (ER) | payer MEDICAID ==
[2021-05-19 05:13] LABS: Bilirubin,Urine NEG (Negative); Blood,Urine NEG (Negative); Color,Urine Colorless (Yellow); Protein,Urine <15 mg/dL mg/dL (Negative); RBC,Urine < 1.0 /HPF (0.0-6.0); Urobilinogen,Urine < 2.0 mg/dL (<2.0); WBC,Urine < 1.0 /HPF (0.0-6.0)
[2021-05-19 05:17] LABS: Benzodiazepines Screen,Urine Negative; Methadone Screen,Urine Negative; Opiate Screen,Urine Negative
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
[2021-05-19 05:30] LABS: Amphetamine Screen,Urine Positive; Cannabinoid Screen,Urine Positive; Cocaine Screen,Urine Positive
[2021-05-19 06:06] LABS: Basophils # (Auto) 0.1 K/mm3 (0.0-0.1); Eosinophils # (Auto) 0.2 K/mm3 (0.0-0.4); Eosinophils % (Auto) 1.9 % (0.0-4.3); Hematocrit 35.1 % (35.5-45.6); Lymphocytes # (Auto) 2.5 K/mm3 (1.2-5.4); Lymphocytes % (Auto) 26.8 % (13.4-35.0); Mean Corpuscular HGB Conc 31 % (32-34); Mean Corpuscular Volume 79 fl (84-94); Monocytes # (Auto) 0.6 K/mm3 (0.0-0.8); Monocytes % (Auto) 5.8 % (0.0-7.3); Platelet Count 380 K/mm3 (140-440); Red Blood Count 4.45 M/mm3 (3.65-5.03); Red Cell Distribution Width 16.4 % (13.2-15.2)
[2021-05-19 06:17] LABS: BUN/Creatinine Ratio 7; Blood Urea Nitrogen 6 mg/dL (9-20); Calcium 9.2 mg/dL (8.4-10.2); Hemolysis Index 6
[2021-05-19 07:56] VITALS: BP 117/83
--- NOTE | 2021-05-19 08:59 | Consultation ---
History of Present Illness - Reason for Consult Consult date: 05/19/21 Reason for consult: SI - History of Present Psychiatric Illness Per ER Note: 40-year-old male with history of schizophrenia presents emergency department complaint of suicidal ideations. He states that he does not currently have a plan and that his suicidal ideation started this morning. He states that he has previously been on Zyprexa. He does not give any additional history. Dannie Caro is a 40y/o male patient whom I evaluated today. He is a/o x 3. He is calm and cooperative. He states he presented to the ER for a "chemical off balance." When asking the patient to explain what he meant, he says "I just been sleeping a lot." I asked had he been on his meds, he says "yea, they work but I just been sleeping a lot, then I ran out." He says he had been doing drugs. I asked the patient what drugs had he been doing, he replied "all of them." His drug screen is positive for cocaine, amphetamines and THC. When asking the patient was he still suicidal, the patient replies "it comes and goes, right now I'm just waking up." He says he hasn't seen his psychiatrist lately. When asking why, he says "I don't know." He initially tells me he lives in the [place] and doesn't like being around people. When talking to the patient about the need for drug cessation and getting on his feet, he says "I got an apartment. I was just saying that." He denies hallucinations of any kind. PAST PSYCHIATRIC HISTORY Diagnoses: Schizophrenia Suicide attempts or Self-harm behavior: None reported Prior psychiatric hospitalizations: Yes Substance Abuse history: Crack cocaine and marijuana Previous psychiatric medications tried: Haldol Outpatient treatment: Yes PAST MEDICAL HISTORY: Anemia Family Psychiatric History: None reported or documented SOCIAL HISTORY Marital Status: Single Living Arrangements: With mom Employment Status: Unemployed Access to guns/weapons: None reported Education: Eighth grade dropout History of Abuse: None reported Legal History: Yes imprisonment REVIEW OF SYSTEMS Constitutional: Negative for weight loss ENT: Negative for stridor Respiratory: Negative for cough or hemoptysis All other systems reviewed and are negative MENTAL STATUS EXAMINATION General Appearance and Behavior: Age appropriate, good hygiene, wearing appropriate clothes, good eye contact, cooperative with questioning Cooperation: Participating/engaged Psychomotor Behavior: unremarkable and within normal limits Mood: "tired" Affect and affective range: congruent with mood Thought Process: Fluent/Logical Thought Content: Within reality Speech: Normal volume, Regular rate and rhythm. Intellectual Functioning: Average Suicidal Ideation: Denies Homicidal Ideation: Denies Hallucinations: Denies Delusions: None elicited Impulse Control: Limited Insight and Judgment: limited insight and judgment Memory: Normal Attention: Normal Orientation: Alert, oriented. Assessment and Plan (1) Polysubstance abuse Current Visit: No Status: Acute (2) Hx of Schizophrenia Current Visit: No Status: Acute RECOMMENDATIONS D/C 1013 MEDICATIONS: Zyprexa 5mg po daily Give first dose prior to discharge Risks, benefits and alternatives of medications discussed with the patient, questions answered and consent obtained from patient. PSYCHOTHERAPY: Supportive psychotherapy provided MEDICAL: Per primary team DELIRIUM PRECAUTIONS: Please re-orient patient frequently, keep lights on during the day, and minimize benzodiazepines and opiates as these medications could worsen patient's confusion. 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 Case discussed with Dr. Orozco. The patient to abstain from all illicit drug use The scheduling clerk to further discuss safety plan The patient to follow up with outpatient psych in 7 to 14 days upon discharge and comply with regimen FOLLOW-UP: Will sign off Thank you for the consult. Please contact with any questions and/or concerns. Medications and Allergies Allergies Allergy/AdvReac Type Severity Reaction Status Date / Time No Known Allergies Allergy Verified 04/26/21 08:35 Home Medications Medication Instructions Recorded Confirmed Last Taken Type Doxepin [SINEquan] 10 mg PO QHS #30 capsule 12/14/19 05/13/20 Unknown Rx FLUoxetine HCL [Prozac] 40 mg PO DAILY #30 capsule 12/14/19 05/13/20 Unknown Rx risperiDONE [RisperDAL] 0.25 mg PO BID #60 tab 12/14/19 05/13/20 Unknown Rx haloperidoL [Haldol] 2 mg PO BID #60 tablet 04/15/20 05/13/20 Unknown Rx traZODone [Desyrel] 100 mg PO QHS #30 04/15/20 05/13/20 Unknown Rx Cetirizine HCl [Zyrtec 10mg tab] 10 mg PO DAILY #20 tablet 11/15/20 Unknown Rx Azithromycin [Zithromax Z-LEONEL] 250 mg PO DAILY #6 tablet 12/12/20 Unknown Rx Benzonatate [Tessalon Perles] 100 mg PO Q8HR #30 capsule 12/12/20 Unknown Rx predniSONE [Deltasone] 40 mg PO QDAY #10 tab 12/12/20 Unknown Rx OLANzapine [ZyPREXA] 5 mg PO QDAY #30 tablet 05/19/21 Unknown Rx Mental Status Exam - Vital signs Last Vital Signs Temp 97.4 F L 05/19/21 07:55 Pulse 80 05/19/21 07:55 Resp 18 05/19/21 07:55 BP 117/83 05/19/21 07:55 Pulse Ox 98 05/19/21 07:55 Results Result Diagrams: 05/19/21 05:30 05/19/21 05:30 Abnormal lab results 05/19/21 05/19/21 05/19/21 Range/Units 03:33 05:30 05:30 Hgb 11.0 L (11.8-15.2) gm/dl Hct 35.1 L (35.5-45.6) % MCV 79 L (84-94) fl MCH 25 L (28-32) pg MCHC 31 L (32-34) % RDW 16.4 H (13.2-15.2) % BUN 6 L (9-20) mg/dL Glucose 111 H (75-100) mg/dL Ur Specific [place] 1.002 L (1.003-1.030) Salicylates (2.8-20.0) mg/dL Acetaminophen (10.0-30.0) ug/mL 05/19/21 05/19/21 Range/Units 05:30 05:30 Hgb (11.8-15.2) gm/dl Hct (35.5-45.6) % MCV (84-94) fl MCH (28-32) pg MCHC (32-34) % RDW (13.2-15.2) % BUN (9-20) mg/dL Glucose (75-100) mg/dL Ur Specific [place] (1.003-1.030) Salicylates < 0.3 L (2.8-20.0) mg/dL Acetaminophen < 5.0 L (10.0-30.0) ug/mL All other labs normal.
== END 2021-05-19 11:36 | disposition home or self-care (01) ==
LOC: ED 01:08
DX: F20.9 Schizophrenia, unspecified (principal); R45.851 Suicidal ideations; F19.10 Other psychoactive substance abuse, uncomplicated; R56.9 Unspecified convulsions; J45.909 Unspecified asthma, uncomplicated
CPT/HCPCS: 36415; 80048; 80307; 80320; 81001; 85025; 99284; G0480

== ENCOUNTER 2021-05-24 08:57 | Emergency (ER) | payer MEDICAID ==
[2021-05-24 09:17] VITALS: BP 137/99
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
== END 2021-05-24 11:24 | disposition home or self-care (01) ==
LOC: ED 08:57
DX: K02.9 Dental caries, unspecified (principal); K04.7 Periapical abscess without sinus; Z76.0 Encounter for issue of repeat prescription; R56.9 Unspecified convulsions; J45.909 Unspecified asthma, uncomplicated; Z98.890 Other specified postprocedural states; Z79.899 Other long term (current) drug therapy
CPT/HCPCS: 99281

== ENCOUNTER 2021-06-02 12:12 | Emergency (ER) | payer MEDICAID ==
[2021-06-02 15:45] LABS: Basophils % (Auto) 0.4 % (0.0-1.8); Hematocrit 37.8 % (35.5-45.6); Hemoglobin 11.9 gm/dl (11.8-15.2); Lymphocytes # (Auto) 0.9 K/mm3 (1.2-5.4); Lymphocytes % (Auto) 8.5 % (13.4-35.0); Mean Corpuscular HGB Conc 31 % (32-34); Mean Corpuscular Volume 79 fl (84-94); Monocytes # (Auto) 0.3 K/mm3 (0.0-0.8); Monocytes % (Auto) 2.3 % (0.0-7.3); Platelet Count 292 K/mm3 (140-440); Red Blood Count 4.77 M/mm3 (3.65-5.03); Red Cell Distribution Width 15.4 % (13.2-15.2)
[2021-06-02 15:49] LABS: Blood Urea Nitrogen 8 mg/dL (9-20); Calcium 9.3 mg/dL (8.4-10.2); Hemolysis Index 11
[2021-06-02 15:57] LABS: BUN/Creatinine Ratio 11
[2021-06-02] MEDS ORDERED: ONDANSETRON 4 MG ODT TAB PO PRN (17:48)
[2021-06-02] MEDS ORDERED: ALBUTEROL 8.5 GM MDI INHALATION IH PRN (17:48)
[2021-06-02] MEDS ORDERED: ACETAMINOPHEN 325 MG TAB PO PRN (17:48)
[2021-06-02] MEDS ORDERED: LORazepam 2 MG/ML VIAL IM PRN (17:48)
[2021-06-02] MEDS ORDERED: HALOPERIDOL LACTATE 5 MG/1 ML INJ IM PRN (17:48)
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
[2021-06-02] MEDS ORDERED: levETIRAcetam 500 MG TAB PO SCH (22:00)
[2021-06-02] MEDS: levETIRAcetam 500 MG/5 ML ORAL LIQD PO SCH (22:34)
[2021-06-02] MEDS: CHLORHEXIDINE MOUTHWASH 473ML MM SCH (22:35)
[2021-06-03 08:25] LABS: Bilirubin,Urine NEG (Negative); Blood,Urine NEG (Negative); Color,Urine Yellow (Yellow); Protein,Urine <15 mg/dL mg/dL (Negative); Urobilinogen,Urine < 2.0 mg/dL (<2.0)
[2021-06-03 08:31] LABS: WBC,Urine < 1.0 /HPF (0.0-6.0)
[2021-06-03 08:33] LABS: Amphetamine Screen,Urine Negative; Benzodiazepines Screen,Urine Negative; Cocaine Screen,Urine Negative; Methadone Screen,Urine Negative; Opiate Screen,Urine Negative
[2021-06-03 08:49] LABS: Cannabinoid Screen,Urine PRESUMPTIVE POSITIVE
[2021-06-03 09:58] VITALS: BP 135/89
--- NOTE | 2021-06-03 11:23 | Consultation ---
History of Present Illness - Reason for Consult Consult date: 06/03/21 Reason for consult: depression, SI - History of Present Psychiatric Illness Per ER Note: The patient is a 40-year-old gentleman. He presents to the ER today with a painless complaint of suicidality. He indicated that he would like to hang himself. He denies physical pain. He denies Covid symptomatology. He currently does not have access to guns or firearms. He states he does not take lithium or Depakote. He states he would like to hang himself. Bryant Caro is a 40y/o patient who presents to the ER for suicidal thoughts with a plan to hang himself. During my evaluation of the patient today he says he's suicidal, very depressed and has schizophrenia and bipolar. The patient says he's been suicidal for about 4 to 5 days. He says "it's getting really bad that 's why I came." The patient says he has a plan to hang himself. The patient says he missed his invega injection. He says "I need help. I have medicaid." He denies hallucinations of any kind. I called the patient's mother at [phone] to get deeper history into the patient's problems. She says the patient is from [place] and is a level 5 mentally ill patient. She says he was housed at the institution there and was allowed to go out at times. She says the patient allows himself to get severely depressed, and she states "he will do anything once he gets that depressed." She says he is impulsive and first attempted suicide at age 13 when he lost his grandmother. She says he has attempted suicide several times, and will hurt others, but mostly does harm to himself. She says the patient visits the hospital a lot because he needs continuous inpatient. She says the patient does not intend to abuse the system but "really needs help." The patient's mother says he no longer lives with her and she can not let him know where she lives because she says he's "too mentally unstable." She says she hasn't spoken to the patient in months. PAST PSYCHIATRIC HISTORY Diagnoses: Schizophrenia Suicide attempts or Self-harm behavior: None reported Prior psychiatric hospitalizations: Yes Substance Abuse history: Crack cocaine and marijuana Previous psychiatric medications tried: Haldol Outpatient treatment: Yes PAST MEDICAL HISTORY: Anemia Family Psychiatric History: None reported or documented SOCIAL HISTORY Marital Status: Single Living Arrangements: With mom Employment Status: Unemployed Access to guns/weapons: None reported Education: Eighth grade dropout History of Abuse: None reported Legal History: Yes imprisonment REVIEW OF SYSTEMS Constitutional: Negative for weight loss ENT: Negative for stridor Respiratory: Negative for cough or hemoptysis All other systems reviewed and are negative MENTAL STATUS EXAMINATION General Appearance and Behavior: Age appropriate, good hygiene, wearing appropriate clothes, good eye contact, cooperative with questioning Cooperation: Participating/engaged Psychomotor Behavior: unremarkable and within normal limits Mood: "depressed" Affect and affective range: congruent with mood Thought Process: Fluent/Logical Thought Content: Within reality Speech: Normal volume, Regular rate and rhythm. Intellectual Functioning: Average Suicidal Ideation: Yes with plan to hang himself Homicidal Ideation: Denies Hallucinations: Denies Delusions: None elicited Impulse Control: Poor Insight and Judgment: Poor insight and judgment Memory: Normal Attention: Normal Orientation: Alert, oriented. Assessment and Plan (1) Schizophrenia RECOMMENDATIONS 1013 Start Zyprexa 5mg po daily Start Doxepin 25mg po qhs Start Vistaril 25mg po BID Start Celexa 20mg po daily Invega Sustenna 156mg IM x 1 Risks, benefits and alternatives of medications discussed with the patient, questions answered and consent obtained from patient. PSYCHOTHERAPY: Supportive psychotherapy provided MEDICAL: Per primary team DELIRIUM PRECAUTIONS: Please re-orient patient frequently, keep lights on during the day, and minimize benzodiazepines and opiates as these medications could worsen patient's confusion. [employer]: per primary DISPOSITION: Recommend acute inpatient psychiatric hospitalization at this time. FOLLOW-UP: Will follow Thank you for the consult. Please contact with any questions and/or concerns. Case discussed with Dr. Orozco. Medications and Allergies Allergies Allergy/AdvReac Type Severity Reaction Status Date / Time No Known Allergies Allergy Verified 04/26/21 08:35 Home Medications Medication Instructions Recorded Confirmed Last Taken Type Doxepin [SINEquan] 10 mg PO QHS #30 capsule 12/14/19 05/13/20 Unknown Rx FLUoxetine HCL [Prozac] 40 mg PO DAILY #30 capsule 12/14/19 05/13/20 Unknown Rx risperiDONE [RisperDAL] 0.25 mg PO BID #60 tab 12/14/19 05/13/20 Unknown Rx haloperidoL [Haldol] 2 mg PO BID #60 tablet 04/15/20 05/13/20 Unknown Rx traZODone [Desyrel] 100 mg PO QHS #30 04/15/20 05/13/20 Unknown Rx Cetirizine HCl [Zyrtec 10mg tab] 10 mg PO DAILY #20 tablet 11/15/20 Unknown Rx Azithromycin [Zithromax Z-LEONEL] 250 mg PO DAILY #6 tablet 12/12/20 Unknown Rx Benzonatate [Tessalon Perles] 100 mg PO Q8HR #30 capsule 12/12/20 Unknown Rx predniSONE [Deltasone] 40 mg PO QDAY #10 tab 12/12/20 Unknown Rx OLANzapine [ZyPREXA] 5 mg PO QDAY #30 tablet 05/19/21 Unknown Rx Acetaminophen [Tylenol] 650 mg PO Q8HR PRN #20 capsule 05/24/21 Unknown Rx Albuterol Sulfate [Proventil Hfa] 1 puff IH TID PRN #1 hfa.aer.ad 05/24/21 Unknown Rx Chlorhexidine Mouthwash [Peridex] 15 ml MM BID #1 bottle 05/24/21 Unknown Rx Penicillin Vk [Veetids TAB] 500 mg PO QID 7 Days #56 tablet 05/24/21 Unknown Rx Active Meds: Active Medications Acetaminophen (Acetaminophen 325 Mg Tab) 650 mg PO Q6HR PRN PRN Reason: PAIN Albuterol (Albuterol 8.5 Gm Mdi Inhalation) 1 puff IH TID PRN PRN Reason: shortness of breath/wheezing Chlorhexidine Gluconate (Chlorhexidine Mouthwash 473ml) 15 ml MM BID [facility] Last Admin: 06/02/21 22:35 Dose: 15 ml Documented by: Haloperidol Lactate (Haloperidol Lactate 5 Mg/1 Ml Inj) 5 mg IM Q6HR PRN PRN Reason: Agitation Levetiracetam (Levetiracetam 500 Mg/5 Ml Oral Liqd) 750 mg PO BID [facility] Last Admin: 06/02/21 22:34 Dose: 750 mg Documented by: Lorazepam (Lorazepam 2 Mg/Ml Vial) 2 mg IM Q4HR PRN PRN Reason: Agitation Ondansetron HCl (Ondansetron 4 Mg Odt Tab) 4 mg PO Q6HR PRN PRN Reason: Nausea Mental Status Exam - Vital signs Last Vital Signs Temp 98.0 F 06/03/21 09:56 Pulse 84 06/03/21 09:56 Resp 18 06/03/21 09:56 BP 135/89 06/03/21 09:56 Pulse Ox 98 06/03/21 09:56 Results Result Diagrams: 06/02/21 15:04 06/02/21 15:04 Abnormal lab results 06/02/21 06/02/21 06/02/21 Range/Units 15:04 15:04 15:04 MCV (84-94) fl MCH (28-32) pg MCHC (32-34) % RDW (13.2-15.2) % Lymph % (Auto) (13.4-35.0) % Lymph # (Auto) (1.2-5.4) K/mm3 Seg Neutrophils % (40.0-70.0) % Seg Neutrophils # (1.8-7.7) K/mm3 BUN 8 L (9-20) mg/dL Creatinine 0.7 L (0.8-1.3) mg/dL Glucose 114 H (75-100) mg/dL Salicylates < 0.3 L (2.8-20.0) mg/dL Acetaminophen 5.0 L (10.0-30.0) ug/mL 06/02/21 Range/Units 15:04 MCV 79 L (84-94) fl MCH 25 L (28-32) pg MCHC 31 L (32-34) % RDW 15.4 H (13.2-15.2) % Lymph % (Auto) 8.5 L (13.4-35.0) % Lymph # (Auto) 0.9 L (1.2-5.4) K/mm3 Seg Neutrophils % 88.8 H (40.0-70.0) % Seg Neutrophils # 9.8 H (1.8-7.7) K/mm3 BUN (9-20) mg/dL Creatinine (0.8-1.3) mg/dL Glucose (75-100) mg/dL Salicylates (2.8-20.0) mg/dL Acetaminophen (10.0-30.0) ug/mL All other labs normal.
[2021-06-03] MEDS: levETIRAcetam 500 MG/5 ML ORAL LIQD PO SCH (12:03)
[2021-06-03] MEDS: CHLORHEXIDINE MOUTHWASH 473ML MM SCH (12:04)
--- NOTE | 2021-06-03 12:26 | Event Note ---
Date: 06/03/21 S: No events reported overnight O: Vital Signs - 24 hr 06/02/21 06/02/21 06/02/21 14:32 17:50 20:08 Temperature 97.8 F 97.9 F Pulse Rate 91 H 94 H 102 H Respiratory 16 18 18 Rate Blood Pressure 132/77 121/85 127/77 [Right] O2 Sat by Pulse 98 97 100 Oximetry 06/02/21 06/03/21 20:16 09:56 Temperature 98.0 F Pulse Rate 84 Respiratory 18 18 Rate Blood Pressure 135/89 [Right] O2 Sat by Pulse 98 Oximetry A: Schizophrenia P: 1013, awaiting inpatient psych placement
[2021-06-03] MEDS ORDERED: hydrOXYzine PAMOATE 25 MG CAP PO SCH (13:00)
[2021-06-03] MEDS ORDERED: CITALOPRAM 20 MG TAB PO SCH (13:00)
[2021-06-03] MEDS ORDERED: BENZTROPINE 0.5 MG TAB PO SCH (13:00)
[2021-06-03] MEDS ORDERED: PALIPERIDONE PALMITATE 156 MG/ML INJ IM ONE (14:52)
[2021-06-03] MEDS ORDERED: DOXEPIN 25 MG CAP PO SCH (22:00)
== END 2021-06-03 17:13 ==
LOC: EEVIPCON 12:12 → ED 12:12
DX: R45.851 Suicidal ideations (principal); Z20.822 Contact with and (suspected) exposure to COVID-19; F20.9 Schizophrenia, unspecified; Z04.6 Encounter for general psychiatric examination, requested by authority; R56.9 Unspecified convulsions; J45.909 Unspecified asthma, uncomplicated; Z98.890 Other specified postprocedural states; Z79.899 Other long term (current) drug therapy
CPT/HCPCS: 36415; 80048; 80307; 81001; 85025; 99285; J2426; Q0177; U0003; 80320; G0480

== ENCOUNTER 2021-06-07 20:27 | Emergency (ER) | payer MEDICAID | END 2021-06-07 21:00 | disposition left against medical advice (07) | LOC: ED 20:27 | DX: R07.89 Other chest pain (principal); Z53.21 Procedure and treatment not carried out due to patient leaving prior to being seen by health care provider ==

== ENCOUNTER 2021-06-10 09:16 | Emergency (ER) | payer MEDICAID | END 2021-06-10 10:00 | LOC: ED 09:16 | DX: Z00.8 Encounter for other general examination (principal); Z53.21 Procedure and treatment not carried out due to patient leaving prior to being seen by health care provider ==

== ENCOUNTER 2021-07-11 15:16 | Emergency (ER) | payer MEDICAID ==
[2021-07-11 17:05] VITALS: BP 130/75
== END 2021-07-11 20:30 | disposition left against medical advice (07) ==
LOC: ED 15:16
DX: R09.3 Abnormal sputum (principal); Z53.21 Procedure and treatment not carried out due to patient leaving prior to being seen by health care provider

== ENCOUNTER 2021-07-21 12:32 | Emergency (ER) | payer MEDICAID ==
[2021-07-21 12:51] VITALS: BP 132/92
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
== END 2021-07-21 14:19 | disposition home or self-care (01) ==
LOC: ED 12:32
DX: K04.7 Periapical abscess without sinus (principal); Z76.0 Encounter for issue of repeat prescription; F20.9 Schizophrenia, unspecified; J45.909 Unspecified asthma, uncomplicated; R56.9 Unspecified convulsions; Z98.890 Other specified postprocedural states
CPT/HCPCS: 99281

== ENCOUNTER 2021-09-02 04:23 | Emergency (ER) | payer MEDICAID ==
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
[2021-09-02 05:19] VITALS: BP 119/83
== END 2021-09-02 05:10 | disposition home or self-care (01) ==
LOC: ED 04:23
DX: K02.9 Dental caries, unspecified (principal); J06.9 Acute upper respiratory infection, unspecified; J45.909 Unspecified asthma, uncomplicated
CPT/HCPCS: 99282

== ENCOUNTER 2021-09-15 15:47 | Emergency (ER) | payer MEDICAID ==
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
[2021-09-15 17:11] LABS: Alanine Aminotransferase 41 units/L (7-56); Albumin 4.4 g/dL (3.9-5); Blood Urea Nitrogen 11 mg/dL (9-20); Calcium 9.5 mg/dL (8.4-10.2); Hemolysis Index 35
[2021-09-15 17:16] LABS: BUN/Creatinine Ratio 12; Hematocrit 38.5 % (35.5-45.6); Mean Corpuscular HGB Conc 31 % (32-34); Mean Corpuscular Volume 76 fl (84-94); Platelet Count 527 K/mm3 (140-440); Red Blood Count 5.09 M/mm3 (3.65-5.03); Red Cell Distribution Width 14.5 % (13.2-15.2)
[2021-09-15] MEDS ORDERED: hydrOXYzine PAMOATE 25 MG CAP PO ONE (17:38)
[2021-09-15 18:41] LABS: Total Cells Counted 100
[2021-09-15 18:42] LABS: Anisocytosis RARE
[2021-09-15 18:43] LABS: Hypochromasia 1+
[2021-09-15] MEDS ORDERED: ZIPRASIDONE MESYLATE 20 MG VIAL IM PRN (23:08)
[2021-09-16 07:04] LABS: Bilirubin,Urine NEG (Negative); Blood,Urine NEG (Negative); Color,Urine Yellow (Yellow); Mucus,Urine FEW /HPF; Protein,Urine <15 mg/dL mg/dL (Negative)
[2021-09-16 07:12] LABS: Amphetamine Screen,Urine PRESUMPTIVE NEGATIVE; Benzodiazepines Screen,Urine PRESUMPTIVE NEGATIVE; Cannabinoid Screen,Urine PRESUMPTIVE POSITIVE; Cocaine Screen,Urine PRESUMPTIVE POSITIVE; Methadone Screen,Urine PRESUMPTIVE NEGATIVE; Opiate Screen,Urine PRESUMPTIVE NEGATIVE
--- NOTE | 2021-09-16 10:42 | Consultation ---
History of Present Illness - Reason for Consult Consult date: 09/16/21 Reason for consult: suicidal ideation - History of Present Psychiatric Illness ED Note: The patient is a 40-year-old male present with a chief complaint of suicidal ideation. Patient states he has not been able to get his psychiatric medications for the past 3 weeks and today he developed suicidal ideation. Patient states he has not attempted to harm himself in any way and does not have a plan. Patient states he just has racing thoughts. Patient missed cocaine use and states he last used earlier today. Dannie Caro is a 40 year old male with history of Schizophrenia who presents to the ED with suicidal ideation. In my interview with the patient he reports non c ompliance with psychotropic medications; last took Invega sustenna DYER about 2 months ago.The patient reports being depressed states symptoms such as loss of appetite, suicidal ideation and auditory hallucinations. He endorses suicidal ideation with a plan to hang himself. He states the voices are telling him to " kill myself, I won't amount to nothing." He denies having homicidal ideation and denies visual hallucinations. PAST PSYCHIATRIC HISTORY Diagnoses: Schizophrenia Suicide attempts or Self-harm behavior: None reported Prior psychiatric hospitalizations: Yes Substance Abuse history: Crack cocaine and marijuana Previous psychiatric medications tried: Haldol Outpatient treatment: Yes PAST MEDICAL HISTORY: Anemia Family Psychiatric History: None reported or documented SOCIAL HISTORY Marital Status: Single Living Arrangements: With brother Employment Status: Unemployed Access to guns/weapons: None reported Education: 10th grade History of Abuse: None reported Legal History: Yes imprisonment REVIEW OF SYSTEMS Constitutional: Negative for weight loss ENT: Negative for stridor Respiratory: Negative for cough or hemoptysis All other systems reviewed and are negative MENTAL STATUS EXAMINATION General Appearance and Behavior: Age appropriate, good hygiene, wearing appropriate clothes, good eye contact, cooperative with questioning Cooperation: Participating/engaged Psychomotor Behavior: unremarkable and within normal limits Mood: depressed Affect and affective range: congruent with mood Thought Process:goal directed Thought Content: suicidal Speech: Normal volume, Regular rate and rhythm. Intellectual Functioning: Average Suicidal Ideation: Yes Homicidal Ideation: Denies Hallucinations: auditory Delusions: None elicited Impulse Control: Limited Insight and Judgment: limited insight and poor judgment Memory: Normal Attention: Normal Orientation: Alert, oriented. Assessment and Plan (1) Polysubstance abuse Current Visit: No Status: Acute (2) Hx of Schizophrenia Current Visit: No Status: Acute RECOMMENDATIONS Continue 1013 Continue home medications. Risks, benefits and alternatives of medications discussed with the patient, questions answered and consent obtained from patient. PSYCHOTHERAPY: Supportive psychotherapy provided MEDICAL: Per primary team DELIRIUM PRECAUTIONS: Please re-orient patient frequently, keep lights on during the day, and minimize benzodiazepines and opiates as these medications could worsen patient's confusion. ENGINEER CHIEF: non indicated DISPOSITION: Recommend acute inpatient psychiatric hospitalization at this time. Case discussed with Dr. Orozco. FOLLOW-UP: Will follow Thank you for the consult. Please contact with any questions and/or concerns. Medications and Allergies Allergies Allergy/AdvReac Type Severity Reaction Status Date / Time No Known Allergies Allergy Verified 04/26/21 08:35 Home Medications Medication Instructions Recorded Confirmed Last Taken Type Citalopram Hydrobromide [celeXA] 20 mg PO DAILY 09/16/21 09/16/21 Unknown History Paliperidone Palmitate [Invega 156 mg IM QMONTH 09/16/21 09/16/21 Unknown History Sustenna] chlorproMAZINE [Thorazine] 10 mg PO QHS 09/16/21 09/16/21 Unknown History Active Meds: Active Medications Ziprasidone (Ziprasidone Mesylate 20 Mg Vial) 20 mg IM Q2H PRN PRN Reason: Agitation Last Admin: 09/15/21 23:14 Dose: 20 mg Documented by: Mental Status Exam - Vital signs Last Vital Signs Temp 98.6 F 09/15/21 20:42 Pulse 108 H 09/15/21 20:42 Resp 18 09/15/21 20:42 BP 128/85 09/15/21 20:42 Pulse Ox 98 09/15/21 20:42 Results Result Diagrams: 09/15/21 16:35 09/15/21 16:35 Abnormal lab results 09/15/21 09/15/21 09/15/21 Range/Units 16:35 16:35 16:35 WBC 17.8 H (4.5-11.0) K/mm3 RBC 5.09 H (3.65-5.03) M/mm3 MCV 76 L (84-94) fl MCH 24 L (28-32) pg MCHC 31 L (32-34) % Plt Count 527 H (140-440) K/mm3 Seg Neuts % (Manual) 73.0 H (40.0-70.0) % Monocytes % (Manual) 9.0 H (0.0-7.3) % Seg Neutrophils # Man 13.0 H (1.8-7.7) K/mm3 Monocytes # (Manual) 1.6 H (0.0-0.8) K/mm3 Sodium 136 L (137-145) mmol/L Total Protein 8.7 H (6.3-8.2) g/dL Salicylates < 0.3 L (2.8-20.0) mg/dL Acetaminophen (10.0-30.0) ug/mL 09/15/21 Range/Units 16:35 WBC (4.5-11.0) K/mm3 RBC (3.65-5.03) M/mm3 MCV (84-94) fl MCH (28-32) pg MCHC (32-34) % Plt Count (140-440) K/mm3 Seg Neuts % (Manual) (40.0-70.0) % Monocytes % (Manual) (0.0-7.3) % Seg Neutrophils # Man (1.8-7.7) K/mm3 Monocytes # (Manual) (0.0-0.8) K/mm3 Sodium (137-145) mmol/L Total Protein (6.3-8.2) g/dL Salicylates (2.8-20.0) mg/dL Acetaminophen 5.0 L (10.0-30.0) ug/mL All other labs normal.
[2021-09-16] MEDS ORDERED: CITALOPRAM 20 MG TAB PO SCH (11:00)
[2021-09-16] MEDS ORDERED: PALIPERIDONE PALMITATE 156 MG/ML INJ IM SCH (11:00)
[2021-09-16 11:04] VITALS: BP 102/69
--- NOTE | 2021-09-16 11:08 | Event Note ---
Date: 09/16/21 S: "I'm feeling suicidal." O: Patient is calm and cooperative. A: Schizophrenia, polysubstance abuse P: 1013; awaiting psychiatric placement
[2021-09-16 12:06] LABS: Basophils # (Auto) 0.1 K/mm3 (0.0-0.1); Basophils % (Auto) 0.7 % (0.0-1.8); Eosinophils % (Auto) 0.3 % (0.0-4.3); Hematocrit 38.9 % (35.5-45.6); Hemoglobin 12.3 gm/dl (11.8-15.2); Lymphocytes # (Auto) 2.6 K/mm3 (1.2-5.4); Lymphocytes % (Auto) 30.6 % (13.4-35.0); Mean Corpuscular HGB Conc 32 % (32-34); Mean Corpuscular Volume 76 fl (84-94); Monocytes # (Auto) 0.7 K/mm3 (0.0-0.8); Monocytes % (Auto) 8.4 % (0.0-7.3); Platelet Count 470 K/mm3 (140-440); Red Blood Count 5.11 M/mm3 (3.65-5.03)
== END 2021-09-16 18:30 ==
LOC: ED 15:47 → EEVIPCON 15:47 → ED 09-16 18:30
DX: R45.851 Suicidal ideations (principal); F14.10 Cocaine abuse, uncomplicated; R56.9 Unspecified convulsions; J45.909 Unspecified asthma, uncomplicated; F17.200 Nicotine dependence, unspecified, uncomplicated; F10.20 Alcohol dependence, uncomplicated; F12.90 Cannabis use, unspecified, uncomplicated; Z20.822 Contact with and (suspected) exposure to COVID-19
CPT/HCPCS: 36415; 80053; 80307; 81001; 85007; 85025; 96372; 99285; J2426; J3486; Q0177; U0003; 80320; G0480; Q0161

== ENCOUNTER 2021-11-03 15:03 | Emergency (ER) | payer MEDICAID ==
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
[2021-11-03 17:17] VITALS: BP 137/70
== END 2021-11-03 17:21 | disposition home or self-care (01) ==
LOC: ED 15:03
DX: K02.9 Dental caries, unspecified (principal); F17.200 Nicotine dependence, unspecified, uncomplicated; F12.90 Cannabis use, unspecified, uncomplicated; F10.20 Alcohol dependence, uncomplicated; J45.909 Unspecified asthma, uncomplicated
CPT/HCPCS: 99282

== ENCOUNTER 2021-12-28 17:23 | Emergency (ER) | payer MEDICAID | END 2021-12-29 18:40 | disposition left against medical advice (07) | LOC: ED 17:23 | DX: R06.02 Shortness of breath (principal); R05.9 Cough, unspecified; R51.9 Headache, unspecified; Z53.21 Procedure and treatment not carried out due to patient leaving prior to being seen by health care provider ==

== ENCOUNTER 2022-01-12 04:39 | Emergency (ER) | payer MEDICAID ==
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
[2022-01-12 05:43] LABS: Basophils # (Auto) 0.1 K/mm3 (0.0-0.1); Basophils % (Auto) 0.7 % (0.0-1.8); Eosinophils % (Auto) 0.1 % (0.0-4.3); Hematocrit 35.8 % (35.5-45.6); Hemoglobin 12.3 gm/dl (11.8-15.2); Lymphocytes # (Auto) 2.4 K/mm3 (1.2-5.4); Lymphocytes % (Auto) 16.1 % (13.4-35.0); Mean Corpuscular HGB Conc 34 % (32-34); Mean Corpuscular Volume 75 fl (84-94); Monocytes # (Auto) 1.2 K/mm3 (0.0-0.8); Monocytes % (Auto) 8.2 % (0.0-7.3); Platelet Count 399 K/mm3 (140-440); Red Blood Count 4.81 M/mm3 (3.65-5.03); Red Cell Distribution Width 13.8 % (13.2-15.2)
[2022-01-12 06:00] LABS: BUN/Creatinine Ratio 14; Blood Urea Nitrogen 13 mg/dL (9-20); Calcium 9.1 mg/dL (8.4-10.2); Hemolysis Index 5
--- NOTE | 2022-01-12 10:30 | Consultation ---
History of Present Illness - Reason for Consult Consult date: 01/12/22 Reason for consult: SI - History of Present Psychiatric Illness The patient was seen today. He says he was misunderstood in triage. He says "I wasn't suicidal. I was trying to tell them that because I was off my medication and that's what I needed." He says "I need new refills." He currently denies SI/HI. He also denies hallucinations of any kind. The patient says "I just need to get back on all my meds." He says he takes Seroquel 200m gpo qhs, Depakote 500mg twice daily, and Risperidone 1mg daily PAST PSYCHIATRIC HISTORY Diagnoses: Schizophrenia Suicide attempts or Self-harm behavior: None reported Prior psychiatric hospitalizations: Yes Substance Abuse history: Crack cocaine and marijuana Previous psychiatric medications tried: Haldol, reisperidone, depakote, seroquel Outpatient treatment: Yes PAST MEDICAL HISTORY: Anemia Family Psychiatric History: None reported or documented SOCIAL HISTORY Marital Status: Single Living Arrangements: With brother Employment Status: Unemployed Access to guns/weapons: None reported Education: 10th grade History of Abuse: None reported Legal History: Yes imprisonment REVIEW OF SYSTEMS Constitutional: Negative for weight loss ENT: Negative for stridor Respiratory: Negative for cough or hemoptysis All other systems reviewed and are negative MENTAL STATUS EXAMINATION General Appearance and Behavior: Age appropriate, good hygiene, wearing appropriate clothes, good eye contact, cooperative with questioning Cooperation: Participating/engaged Psychomotor Behavior: unremarkable and within normal limits Mood: depressed Affect and affective range: congruent with mood Thought Process:goal directed Thought Content: suicidal Speech: Normal volume, Regular rate and rhythm. Intellectual Functioning: Average Suicidal Ideation: Yes Homicidal Ideation: Denies Hallucinations: auditory Delusions: None elicited Impulse Control: Limited Insight and Judgment: limited insight and poor judgment Memory: Normal Attention: Normal Orientation: Alert, oriented. Assessment and Plan (1) Hx of Schizophrenia RECOMMENDATIONS Seroquel 200mg po qhs Depakote Dr 500mg po BID Risperidone 1mg po daily Risks, benefits and alternatives of medications discussed with the patient, questions answered and consent obtained from patient. PSYCHOTHERAPY: Supportive psychotherapy provided MEDICAL: Per primary team DELIRIUM PRECAUTIONS: Please re-orient patient frequently, keep lights on during the day, and minimize benzodiazepines and opiates as these medications could worsen patient's confusion. 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 The patient to follow up with psych in 7 to 14 days upon discharge FOLLOW-UP: Will sign off Thank you for the consult. Please contact with any questions and/or concerns. Case staffed with Dr. Orozco Medications and Allergies Allergies Allergy/AdvReac Type Severity Reaction Status Date / Time No Known Allergies Allergy Verified 04/26/21 08:35 Home Medications Medication Instructions Recorded Confirmed Last Taken Type Depakote Dr 500 mg PO BID 01/12/22 01/12/[address] [DepaKOTE DR] 500 mg PO BID #60 tablet 01/12/22 Unknown Rx ProAir HFA Inhaler 2 puff IH QID PRN 01/12/22 01/12/22 Unknown History QUEtiapine [SEROquel] 200 mg PO QHS #30 01/12/22 Unknown Rx Risperdal 1 mg PO DAILY 01/12/22 01/12/22 Unknown History SEROquel 200 mg PO QHS 01/12/22 01/12/22 Unknown History risperiDONE [RisperDAL] 1 mg PO DAILY #30 01/12/22 Unknown Rx Mental Status Exam - Vital signs Last Vital Signs Temp 98.4 F 01/12/22 04:46 Pulse 109 H 01/12/22 04:46 Resp 17 01/12/22 04:46 BP 120/61 01/12/22 04:46 Pulse Ox 100 01/12/22 04:57 Results Result Diagrams: 01/12/22 05:28 01/12/22 05:28 Abnormal lab results 01/12/22 01/12/22 01/12/22 Range/Units 05:28 05:28 05:28 WBC 14.8 H (4.5-11.0) K/mm3 MCV 75 L (84-94) fl MCH 26 L (28-32) pg [place] % (Auto) 8.2 H (0.0-7.3) % [place] # (Auto) 1.2 H (0.0-0.8) K/mm3 Seg Neutrophils % 74.9 H (40.0-70.0) % Seg Neutrophils # 11.1 H (1.8-7.7) K/mm3 Carbon Dioxide 19 L (22-30) mmol/L Salicylates < 0.3 L (2.8-20.0) mg/dL Acetaminophen (10.0-30.0) ug/mL 01/12/22 Range/Units 05:28 WBC (4.5-11.0) K/mm3 MCV (84-94) fl MCH (28-32) pg [place] % (Auto) (0.0-7.3) % [place] # (Auto) (0.0-0.8) K/mm3 Seg Neutrophils % (40.0-70.0) % Seg Neutrophils # (1.8-7.7) K/mm3 Carbon Dioxide (22-30) mmol/L Salicylates (2.8-20.0) mg/dL Acetaminophen 5.0 L (10.0-30.0) ug/mL All other labs normal.
[2022-01-12 11:22] LABS: Bilirubin,Urine NEG (Negative); Blood,Urine NEG (Negative); Color,Urine Yellow (Yellow); Mucus,Urine FEW /HPF; Urobilinogen,Urine < 2.0 mg/dL (<2.0)
[2022-01-12 11:37] LABS: Amphetamine Screen,Urine Negative; Benzodiazepines Screen,Urine Negative; Methadone Screen,Urine Negative; Opiate Screen,Urine Negative
--- NOTE | 2022-01-12 11:47 | Event Note ---
Date: 01/12/22 The patient was evaluated in the emergency department for symptoms described in the history of present illness. He/she was evaluated in the context of the global COVID-19 pandemic, which necessitated consideration that the patient might be at risk for infection with the virus that causes COVID-19. Institutional protocols and algorithms that pertain to the evaluation of patients at risk for COVID-19 are in a state of rapid change based on information released by regulatory bodies including the CDC and federal and state organizations. These policies and algorithms were followed during the patient's care in the emergency department. Please note that these policies, procedures and recommendations changed on a rapid basis. Laboratory studies, vital signs, nursing documentation, ER documentation, and psychiatric documentation are reviewed and appreciated. Nursing team reports no acute events this morning or concerns. While initially tachycardic on triage, the provider who evaluated him last night documented a normal heart rate with resolution of tachycardia. The patient is awake and not in any acute distress. Nursing team reports that the patient ate breakfast and went to the bathroom this morning without difficulty. The patient was deemed medically suitable for psychiatric disposition and placement during his initial ER evaluation. The patient continues to remain medically suitable for psychiatric placement and disposition. The psychiatric team have advised that this patient does not meet criteria for 1013 hold or involuntary confinement, and have recommended discharge. They have provided prescriptions for this patient. He will be discharged with the psychiatric team is recommended prescriptions. Vital Signs 01/12/22 01/12/22 04:46 04:57 Temperature 98.4 F Pulse Rate 109 H Respiratory 17 Rate Blood Pressure 120/61 [Right] O2 Sat by Pulse 98 100 Oximetry Lab Results 01/12/22 01/12/22 01/12/22 Range/Units 05:28 05:28 05:28 WBC 14.8 H (4.5-11.0) K/mm3 RBC 4.81 (3.65-5.03) M/mm3 Hgb 12.3 (11.8-15.2) gm/dl Hct 35.8 (35.5-45.6) % MCV 75 L (84-94) fl MCH 26 L (28-32) pg MCHC 34 (32-34) % RDW 13.8 (13.2-15.2) % Plt Count 399 (140-440) K/mm3 Lymph % (Auto) 16.1 (13.4-35.0) % [place] % (Auto) 8.2 H (0.0-7.3) % Eos % (Auto) 0.1 (0.0-4.3) % Baso % (Auto) 0.7 (0.0-1.8) % Lymph # (Auto) 2.4 (1.2-5.4) K/mm3 [place] # (Auto) 1.2 H (0.0-0.8) K/mm3 Eos # (Auto) 0.0 (0.0-0.4) K/mm3 Baso # (Auto) 0.1 (0.0-0.1) K/mm3 Seg Neutrophils % 74.9 H (40.0-70.0) % Seg Neutrophils # 11.1 H (1.8-7.7) K/mm3 Sodium 137 (137-145) mmol/L Potassium 4.0 (3.6-5.0) mmol/L Chloride 101.7 (98-107) mmol/L Carbon Dioxide 19 L (22-30) mmol/L Anion Gap 20 mmol/L BUN 13 (9-20) mg/dL Creatinine 0.9 (0.8-1.3) mg/dL Estimated GFR > 60 ml/min BUN/Creatinine Ratio 14 % Glucose 93 (75-100) mg/dL Calcium 9.1 (8.4-10.2) mg/dL Urine Color (Yellow) Urine Turbidity (Clear) Urine pH (5.0-7.0) Ur Specific [place] (1.003-1.030) Urine Protein (Negative) mg/dL Urine Glucose (UA) (Negative) mg/dL Urine Ketones (Negative) mg/dL Urine Blood (Negative) Urine Nitrite (Negative) Urine Bilirubin (Negative) Urine Urobilinogen (<2.0) mg/dL Ur Leukocyte Esterase (Negative) Urine WBC (Auto) (0.0-6.0) /HPF Urine RBC (Auto) (0.0-6.0) /HPF U Epithel Cells (Auto) (0-13.0) /HPF Urine Mucus /HPF Salicylates < 0.3 L (2.8-20.0) mg/dL Urine Opiates Screen Urine Methadone Screen Acetaminophen (10.0-30.0) ug/mL Ur Barbiturates Screen Ur Phencyclidine Scrn Ur Amphetamines Screen U Benzodiazepines Scrn Plasma/Serum Alcohol (0-0.07) % SARS-CoV-2 (PCR) (Negative) 01/12/22 01/12/22 01/12/22 Range/Units 05:28 05:28 09:20 WBC (4.5-11.0) K/mm3 RBC (3.65-5.03) M/mm3 Hgb (11.8-15.2) gm/dl Hct (35.5-45.6) % MCV (84-94) fl MCH (28-32) pg MCHC (32-34) % RDW (13.2-15.2) % Plt Count (140-440) K/mm3 Lymph % (Auto) (13.4-35.0) % [place] % (Auto) (0.0-7.3) % Eos % (Auto) (0.0-4.3) % Baso % (Auto) (0.0-1.8) % Lymph # (Auto) (1.2-5.4) K/mm3 [place] # (Auto) (0.0-0.8) K/mm3 Eos # (Auto) (0.0-0.4) K/mm3 Baso # (Auto) (0.0-0.1) K/mm3 Seg Neutrophils % (40.0-70.0) % Seg Neutrophils # (1.8-7.7) K/mm3 Sodium (137-145) mmol/L Potassium (3.6-5.0) mmol/L Chloride (98-107) mmol/L Carbon Dioxide (22-30) mmol/L Anion Gap mmol/L BUN (9-20) mg/dL Creatinine (0.8-1.3) mg/dL Estimated GFR ml/min BUN/Creatinine Ratio % Glucose (75-100) mg/dL Calcium (8.4-10.2) mg/dL Urine Color (Yellow) Urine Turbidity (Clear) Urine pH (5.0-7.0) Ur Specific [place] (1.003-1.030) Urine Protein (Negative) mg/dL Urine Glucose (UA) (Negative) mg/dL Urine Ketones (Negative) mg/dL Urine Blood (Negative) Urine Nitrite (Negative) Urine Bilirubin (Negative) Urine Urobilinogen (<2.0) mg/dL Ur Leukocyte Esterase (Negative) Urine WBC (Auto) (0.0-6.0) /HPF Urine RBC (Auto) (0.0-6.0) /HPF U Epithel Cells (Auto) (0-13.0) /HPF Urine Mucus /HPF Salicylates (2.8-20.0) mg/dL Urine Opiates Screen Urine Methadone Screen Acetaminophen 5.0 L (10.0-30.0) ug/mL Ur Barbiturates Screen Ur Phencyclidine Scrn Ur Amphetamines Screen U Benzodiazepines Scrn Plasma/Serum Alcohol < 0.01 (0-0.07) % SARS-CoV-2 (PCR) Negative (Negative) 01/12/22 01/12/22 Range/Units 09:58 09:58 WBC (4.5-11.0) K/mm3 RBC (3.65-5.03) M/mm3 Hgb (11.8-15.2) gm/dl Hct (35.5-45.6) % MCV (84-94) fl MCH (28-32) pg MCHC (32-34) % RDW (13.2-15.2) % Plt Count (140-440) K/mm3 Lymph % (Auto) (13.4-35.0) % [place] % (Auto) (0.0-7.3) % Eos % (Auto) (0.0-4.3) % Baso % (Auto) (0.0-1.8) % Lymph # (Auto) (1.2-5.4) K/mm3 [place] # (Auto) (0.0-0.8) K/mm3 Eos # (Auto) (0.0-0.4) K/mm3 Baso # (Auto) (0.0-0.1) K/mm3 Seg Neutrophils % (40.0-70.0) % Seg Neutrophils # (1.8-7.7) K/mm3 Sodium (137-145) mmol/L Potassium (3.6-5.0) mmol/L Chloride (98-107) mmol/L Carbon Dioxide (22-30) mmol/L Anion Gap mmol/L BUN (9-20) mg/dL Creatinine (0.8-1.3) mg/dL Estimated GFR ml/min BUN/Creatinine Ratio % Glucose (75-100) mg/dL Calcium (8.4-10.2) mg/dL Urine Color Yellow (Yellow) Urine Turbidity Clear (Clear) Urine pH 5.0 (5.0-7.0) Ur Specific [place] 1.026 (1.003-1.030) Urine Protein 30 mg/dl (Negative) mg/dL Urine Glucose (UA) Neg (Negative) mg/dL Urine Ketones 20 (Negative) mg/dL Urine Blood Neg (Negative) Urine Nitrite Neg (Negative) Urine Bilirubin Neg (Negative) Urine Urobilinogen < 2.0 (<2.0) mg/dL Ur Leukocyte Esterase Neg (Negative) Urine WBC (Auto) 1.0 (0.0-6.0) /HPF Urine RBC (Auto) 1.0 (0.0-6.0) /HPF U Epithel Cells (Auto) < 1.0 (0-13.0) /HPF Urine Mucus Few /HPF Salicylates (2.8-20.0) mg/dL Urine Opiates Screen Negative Urine Methadone Screen Negative Acetaminophen (10.0-30.0) ug/mL Ur Barbiturates Screen Negative Ur Phencyclidine Scrn Negative Ur Amphetamines Screen Negative U Benzodiazepines Scrn Negative Plasma/Serum Alcohol (0-0.07) % SARS-CoV-2 (PCR) (Negative)
[2022-01-12 11:53] LABS: Cannabinoid Screen,Urine Positive; Cocaine Screen,Urine Positive
[2022-01-12 12:19] VITALS: BP 120/82
== END 2022-01-12 12:20 | disposition home or self-care (01) ==
LOC: ED 04:39
DX: F20.9 Schizophrenia, unspecified (principal); Z76.0 Encounter for issue of repeat prescription; R56.9 Unspecified convulsions; J45.909 Unspecified asthma, uncomplicated; Z98.890 Other specified postprocedural states; F17.200 Nicotine dependence, unspecified, uncomplicated; Z20.822 Contact with and (suspected) exposure to COVID-19
CPT/HCPCS: 36415; 80048; 80307; 81001; 85025; 99284; U0003; 80320; G0480

== ENCOUNTER 2022-01-19 23:00 | Emergency (ER) | payer MEDICAID | END 2022-01-20 02:55 | disposition left against medical advice (07) | LOC: ED 23:00 | DX: K13.70 Unspecified lesions of oral mucosa (principal); Z53.21 Procedure and treatment not carried out due to patient leaving prior to being seen by health care provider ==

== ENCOUNTER 2022-03-20 14:27 | Emergency (ER) | payer MEDICAID ==
[2022-03-20 14:51] VITALS: BP 146/87
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
== END 2022-03-20 18:24 | disposition home or self-care (01) ==
LOC: ED 14:27
DX: K02.9 Dental caries, unspecified (principal); J02.9 Acute pharyngitis, unspecified; R51.9 Headache, unspecified; R05.9 Cough, unspecified; J45.909 Unspecified asthma, uncomplicated; F17.210 Nicotine dependence, cigarettes, uncomplicated; F12.90 Cannabis use, unspecified, uncomplicated; F14.90 Cocaine use, unspecified, uncomplicated; F20.9 Schizophrenia, unspecified; Z72.89 Other problems related to lifestyle; Z79.899 Other long term (current) drug therapy
CPT/HCPCS: 99282

== ENCOUNTER 2022-03-26 09:00 | Emergency (ER) | payer MEDICAID ==
[2022-03-26 09:11] VITALS: BP 150/90
[2022-03-26 10:35] LABS: Basophils # (Auto) 0.1 K/mm3 (0.0-0.1); Basophils % (Auto) 0.7 % (0.0-1.8); Eosinophils % (Auto) 0.4 % (0.0-4.3); Hematocrit 42.5 % (35.5-45.6); Hemoglobin 13.4 gm/dl (11.8-15.2); Lymphocytes # (Auto) 1.7 K/mm3 (1.2-5.4); Mean Corpuscular HGB Conc 32 % (32-34); Mean Corpuscular Volume 75 fl (84-94); Monocytes # (Auto) 0.6 K/mm3 (0.0-0.8); Monocytes % (Auto) 5.4 % (0.0-7.3); Platelet Count 367 K/mm3 (140-440); Red Blood Count 5.65 M/mm3 (3.65-5.03)
[2022-03-26 10:59] LABS: Alanine Aminotransferase 84 units/L (7-56); Albumin 4.7 g/dL (3.9-5); BUN/Creatinine Ratio 8; Blood Urea Nitrogen 7 mg/dL (9-20); Calcium 9.1 mg/dL (8.4-10.2); Hemolysis Index 13
--- NOTE | 2022-03-26 11:23 | Consultation ---
History of Present Illness - Reason for Consult Consult date: 03/26/22 Reason for consult: racing thoughts - History of Present Psychiatric Illness The patient was seen today. He says he came to the ER because he was having racing thoughts and a tooth ache. He is asking for "a shot of geodon and haldol to calm down." The patient says he hasn't been taking his meds. He says "I don't have no more." The patient denies SI/HI or hallucinations of any kind. He now says "I left my mom at the apartment and really need to get back to her." He says "I also need to go get some of my stuff there." PAST PSYCHIATRIC HISTORY Diagnoses: Schizophrenia Suicide attempts or Self-harm behavior: None reported Prior psychiatric hospitalizations: Yes Substance Abuse history: Crack cocaine and marijuana Previous psychiatric medications tried: Haldol Outpatient treatment: Yes PAST MEDICAL HISTORY: Anemia Family Psychiatric History: None reported or documented SOCIAL HISTORY Marital Status: Single Living Arrangements: With mother Employment Status: Unemployed Access to guns/weapons: None reported Education: 10th grade History of Abuse: None reported Legal History: Yes imprisonment REVIEW OF SYSTEMS Constitutional: Negative for weight loss ENT: Negative for stridor Respiratory: Negative for cough or hemoptysis All other systems reviewed and are negative MENTAL STATUS EXAMINATION General Appearance and Behavior: Age appropriate, good hygiene, wearing appropriate clothes, good eye contact, cooperative with questioning Cooperation: Participating/engaged Psychomotor Behavior: unremarkable and within normal limits Mood: okay Affect and affective range: congruent with mood Thought Process: racing thoughts Thought Content: None Speech: Normal volume, Regular rate and rhythm. Suicidal Ideation: Denies Homicidal Ideation: Denies Hallucinations: auditory Delusions: None elicited Impulse Control: Limited Insight and Judgment: limited insight and poor judgment Memory: Normal Attention: Normal Orientation: Alert, oriented. Assessment and Plan (1) Hx of Schizophrenia Current Visit: No Status: Acute RECOMMENDATIONS Risks, benefits and alternatives of medications discussed with the patient, questions answered and consent obtained from patient. PSYCHOTHERAPY: Supportive psychotherapy provided MEDICAL: Per primary team DELIRIUM PRECAUTIONS: Please re-orient patient frequently, keep lights on during the day, and minimize benzodiazepines and opiates as these medications could worsen patient's confusion. ADULT EDUCATION PROFESSIONAL: non indicated DISPOSITION: Do not recommend acute inpatient psychiatric hospitalization at this time. FOLLOW-UP: Will follow Thank you for the consult. Please contact with any questions and/or concerns. Case staffed with Dr. Orozco Medications and Allergies Allergies Allergy/AdvReac Type Severity Reaction Status Date / Time No Known Allergies Allergy Verified 04/26/21 08:35 Home Medications Medication Instructions Recorded Confirmed Last Taken Type Depakote Dr 500 mg PO BID 01/12/22 01/12/[address] [DepaKOTE DR] 500 mg PO BID #60 tablet 01/12/22 Unknown Rx ProAir HFA Inhaler 2 puff IH QID PRN 01/12/22 01/12/22 Unknown History QUEtiapine [SEROquel] 200 mg PO QHS #30 01/12/22 Unknown Rx Risperdal 1 mg PO DAILY 01/12/22 01/12/22 Unknown History SEROquel 200 mg PO QHS 01/12/22 01/12/22 Unknown History risperiDONE [RisperDAL] 1 mg PO DAILY #30 01/12/22 Unknown Rx Clindamycin [Clindamycin CAP] 600 mg PO BID 10 Days #20 capsule 03/20/22 Unknow n Rx Ibuprofen [Motrin] 800 mg PO Q8HR PRN 15 Days #30 03/20/22 Unknown Rx tablet Mental Status Exam - Vital signs Last Vital Signs Temp 98.4 F 03/26/22 09:08 Pulse 110 H 03/26/22 09:08 Resp 20 03/26/22 09:08 BP 150/90 03/26/22 09:08 Pulse Ox 97 03/26/22 09:08 Results Result Diagrams: 03/26/22 10:18 03/26/22 10:18 Abnormal lab results 03/26/22 03/26/22 Range/Units 10:18 10:18 WBC 11.7 H (4.5-11.0) K/mm3 RBC 5.65 H (3.65-5.03) M/mm3 MCV 75 L (84-94) fl MCH 24 L (28-32) pg Seg Neutrophils % 78.5 H (40.0-70.0) % Seg Neutrophils # 9.1 H (1.8-7.7) K/mm3 BUN 7 L (9-20) mg/dL Glucose 104 H (75-100) mg/dL AST 303 H (5-40) units/L ALT 84 H (7-56) units/L All other labs normal.
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
== END 2022-03-26 12:38 | disposition home or self-care (01) ==
LOC: ED 09:00
DX: F20.9 Schizophrenia, unspecified (principal); J45.909 Unspecified asthma, uncomplicated; F17.200 Nicotine dependence, unspecified, uncomplicated; F12.90 Cannabis use, unspecified, uncomplicated; F10.20 Alcohol dependence, uncomplicated
CPT/HCPCS: 36415; 80053; 80320; 85025; 99283; G0480

== ENCOUNTER 2022-06-05 16:30 | Emergency (ER) | payer MEDICAID ==
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
[2022-06-06 07:15] VITALS: BP 156/88
== END 2022-06-06 07:14 | disposition home or self-care (01) ==
LOC: ED 16:30
DX: K02.9 Dental caries, unspecified (principal); F17.200 Nicotine dependence, unspecified, uncomplicated; J45.909 Unspecified asthma, uncomplicated; F10.20 Alcohol dependence, uncomplicated; F12.90 Cannabis use, unspecified, uncomplicated
CPT/HCPCS: 99282

== ENCOUNTER 2022-06-27 15:20 | Emergency (ER) | payer MEDICAID ==
[2022-06-27 16:32] VITALS: BP 148/94
== END 2022-06-28 09:51 | disposition left against medical advice (07) ==
LOC: ED 15:20
DX: Z00.00 Encounter for general adult medical examination without abnormal findings (principal); Z53.21 Procedure and treatment not carried out due to patient leaving prior to being seen by health care provider

== ENCOUNTER 2022-07-28 04:56 | Emergency (ER) | payer MEDICAID ==
[2022-07-28] MEDS ORDERED: IBUPROFEN 600 MG TAB PO ONE (06:49)
[2022-07-28] MEDS ORDERED: SODIUM CHLORIDE 0.9% 1000 ML 1,000 ML IV ONE (06:49)
[2022-07-28] MEDS ORDERED: ACETAMINOPHEN 325 MG TAB PO ONE (06:49)
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
[2022-07-28 07:44] LABS: Hematocrit 37.2 % (35.5-45.6); Hemoglobin 11.4 gm/dl (11.8-15.2); Mean Corpuscular HGB Conc 31 % (32-34); Mean Corpuscular Volume 75 fl (84-94); Platelet Count 247 K/mm3 (140-440); Red Blood Count 4.97 M/mm3 (3.65-5.03); Red Cell Distribution Width 13.3 % (13.2-15.2)
--- NOTE | 2022-07-28 08:01 | XRay Report ---
CHEST 1 VIEW 07/28/2022 6:53 AM INDICATION / CLINICAL INFORMATION: FEVER / COUGH. COMPARISON: 12/12/2020 FINDINGS: SUPPORT DEVICES: None. HEART / MEDIASTINUM: No significant abnormality. LUNGS / PLEURA: No significant pulmonary or pleural abnormality. No pneumothorax. ADDITIONAL FINDINGS: No significant additional findings. IMPRESSION: 1. No acute findings. Signer Name: Olivier Esquivel Jr, MD Signed: 07/28/2022 7:57 AM Workstation Name: [id number]
[2022-07-28 08:03] LABS: BUN/Creatinine Ratio 9; Blood Urea Nitrogen 9 mg/dL (9-20); Hemolysis Index 4
[2022-07-28 09:08] LABS: Mucus,Urine FEW /HPF
[2022-07-28 09:10] LABS: Color,Urine Yellow (Yellow)
[2022-07-28] MEDS ORDERED: AMOXICILLIN/K CLAV 875/125MG TAB PO ONE (10:29)
[2022-07-28 11:01] VITALS: BP 104/73
--- NOTE | 2022-07-30 17:15 | Electrocardiograph Report ---
[facility] Test Date: 2022-07-28 Test Time: 07:45:38 Pat Name: MARIANA ROWLEY Department: Room: Gender: M Medical Scribe: 0000 : 1980 Requested By: LETY ELENA Order Number: [id number] Reading MD: Trent Qiu Measurements Intervals [place] Rate: 103 P: 70 OR: 143 QRS: 45 QRSD: 74 T: 23 QT: 315 QTc: 412 Interpretive Statements Sinus tachycardia Consider left ventricular hypertrophy Compared to ECG 04/25/2021 18:50:28 No significant change Electronically Signed On 07-30-2022 17:15:34 EDT by Trent Qiu
== END 2022-07-28 11:37 | disposition home or self-care (01) ==
LOC: ED 04:56
DX: H66.91 Otitis media, unspecified, right ear (principal); J45.909 Unspecified asthma, uncomplicated; F20.9 Schizophrenia, unspecified; F17.210 Nicotine dependence, cigarettes, uncomplicated; F12.90 Cannabis use, unspecified, uncomplicated; F14.90 Cocaine use, unspecified, uncomplicated; Z72.89 Other problems related to lifestyle; Z79.899 Other long term (current) drug therapy
CPT/HCPCS: 36415; 71045; 80048; 81001; 85027; 87116; 87400; 87430; 93005; 96360; 99284; J7030